=== PATIENT | female | born 1990 | race African-American/Black ===

== ENCOUNTER 2019-12-06 02:13 | Emergency (ER) | payer SELFPAY ==
[~2019-12-06] VITALS: Ht 162.6 cm; Wt 92.5 kg
[2019-12-06] MEDS ORDERED: SODIUM CHLORIDE 0.9% 1000ML 1,000 ML IV STA (02:23)
[2019-12-06] MEDS ORDERED: KETOROLAC TROMETHAMINE 30 MG/ML VIAL IV STA (02:23)
--- NOTE | 2019-12-06 02:25 | Emergency Department Note ---
History of Present Illnes History of Present Illness History of Present Illness This is a 29 year old female with pain this AM in "vaginal hole". Onset (how long ago): day(s) Radiation: Reports abdomen Severity: moderate Onset quality: gradual Duration (how long): day(s) Timing of current episode: constant Progression: worsening Chronicity: new Exacerbating factors: eating Associated symptoms: Reports denies other symptoms Treatments prior to arrival: none Past Medical/Family History Physician Review I have reviewed the patient's past medical and family history. Any updates have been documented here. Past Medical History Recent Fever: No Clinical Suspicion of Infectio: No New/Unexplained Change in Ment: No Other Medical History: endometriosis Past Surgical History: None Social History Smoking Cessation: Never Smoker Alcohol Use: None Any Illegal Drug Use: No Review of Systems Review of Systems Constitutional: Reports fever EENTM: Reports no symptoms Cardiovascular: Reports no symptoms Respiratory: Reports no symptoms Gastrointestinal: Reports abdominal pain, Reports nausea, Reports vomiting Genitourinary: Reports no symptoms Musculoskeletal: Reports no symptoms Integumentary: Reports no symptoms Neurological: Reports no symptoms Psychological: Reports no symptoms Endocrine: Reports no symptoms Hematological/Lymphatic: Reports no symptoms Physical Exam Related Data Allergies: Coded Allergies: No Known Allergies (Unverified , 12/06/19) Physical Exam CONSTITUTIONAL Constitutional: Present well-developed, Present well-nourished, Present obese HENT HENT: Present normocephalic, Present atraumatic, Present oropharynx clear/moist, Present nose normal HENT L/R: Present left ext ear normal, Present right ext ear normal EYES Eyes: Reports PERRL, Reports conjunctivae normal NECK Neck: Present ROM normal PULMONARY Pulmonary: Present effort normal, Present breath sounds normal CARDIOVASCULAR Cardiovascular: Present regular rhythm, Present heart sounds normal, Present capillary refill normal, Present normal rate GASTROINTESTINAL Abdominal: Present soft, Present bowel sounds normal, Present tender (s uprapubic) GENITOURINARY Genitourinary: Present exam deferred SKIN Skin: Present warm, Present dry MUSCULOSKELETAL Musculoskeletal: Present ROM normal NEUROLOGICAL Neurological: Present alert, Present oriented x 3, Present no gross motor or sensory deficits PSYCHOLOGICAL Psychological: Present mood/affect normal, Present judgement normal Results Laboratory Lab results reviewed: Yes Imaging Imaging results reviewed: Yes Impressions [place] [id number] Patient Name: DILSHAD PRETTY MR #: [id number] : 1990 Age/Sex: 29/F [facility] #: [id number] Req #: [id number] [facility] Physician: Ordered by: MARGA DAVIDSON DO Report #: [id number] Location: ER Room/Bed: Procedure: [id number] CT/CT ABDOMEN/PELVIS WO Exam Date: Exam Time: REPORT STATUS: Signed EXAM: CT Abdomen and Pelvis WITHOUT contrast INDICATION: ^L flank pain COMPARISON: None. TECHNIQUE: Abdomen and pelvis were scanned utilizing a multidetector helical scanner from the lung base to the pubic symphysis without administration of IV contrast. Absence of intravenous contrast decreases sensitivity for detection of focal lesions and vascular pathology. Coronal and sagittal reformations were obtained. Routine protocol was performed. IV CONTRAST: None ORAL CONTRAST: Water COMPLICATIONS: None RADIATION DOSE: Total DLP: 642.58 mGy*cm Estimated effective dose: (DLP x 0.015 x size factor) mSv CTDIvol has been reviewed. It is below the limits set by the Radiation Protocol Committee (RPC). FINDINGS: LINES and TUBES: None. LOWER THORAX: Unremarkable HEPATOBILIARY: Unenhanced liver is unremarkable. No biliary ductal dilation. GALLBLADDER: Collapsed, limiting evaluation. SPLEEN: No splenomegaly. PANCREAS: No focal masses or ductal dilatation. ADRENALS: No adrenal nodules KIDNEYS/URETERS: No hydronephrosis. Limited for evaluation of renal parenchyma without intravenous contrast. No stones. GI TRACT: No abnormal distention, wall thickening, or evidence of bowel obstruction. Appendix is normal. PELVIC ORGANS/BLADDER: Bladder is not distended. Several pelvic phleboliths. Vaginal tampon in place. 1.6 cm left ovarian cyst. LYMPH NODES: No lymphadenopathy. VESSELS: Unremarkable. PERITONEUM / RETROPERITONEUM: No free air or fluid. BONES: Unremarkable. SOFT TISSUES: Unremarkable. IMPRESSION: 1. No nephrolithiasis or evidence of obstructive urolithiasis. Signed by: Dr. Toby Huang MD on 12/06/2019 4:20 AM Dictated By: TOBY HUANG MD 9 Transcribed By: IRENA on 12/06/19419 COPY TO: MARGA DAVIDSON DO~ Assessment & Plan Medical Decision Making MDM Diff Dx : ectopic , uterine CA, fibroids, appendicitis, uti, kidney stone Reassessment Reassessment Patient with OD risk score of 500 plus. Patient witwh 80 pills of ultram in the month of november. Patient alluded to me that the only script that would work for her would be ultram. I explained that i would only prescribe pyridium and patient stated to nurse that if she could not receive ultram prescription for this visit that she might be back. I confronted patient told her that in a 48 hour period two separate prescribers gave her a total of 30 pills earlier this month. I asked her why she would require another prescription for ultram and asked directly if she was selling the pills. She replied that she was stockpiling her pills so to prevent future ER visits. Concern for overdose if prescription for ultram given this visit. Assessment & Plan Final Impression: (1) Urinary tract infection (2) Drug-seeking behavior Depart Disposition: HOME, SELF-CARE MARGA DAVIDSON DO Dec 06, 2019 02:25
[2019-12-06 03:05] LABS: BASOPHILS # (AUTO) 0.1 (0.0-0.1); BASOPHILS % 0.7 % (0.0-1.0); EOSINOPHILS # (AUTO) 0.1 (0.0-0.4); EOSINOPHILS % 0.6 % (0.0-6.0); HEMATOCRIT 29.9 % (34.2-44.1); HEMOGLOBIN 8.7 g/dL (12.0-16.0); LYMPHOCYTES # (AUTO) 2.8 (1.0-3.2); LYMPHOCYTES % 31.5 % (18.0-39.1); MEAN CORPUSCULAR HEMOGLOBIN 20.3 pg (28-32); MEAN CORPUSCULAR HGB CONC 29.1 g/dL (31-35); MEAN CORPUSCULAR VOLUME 69.9 fL (81-99); MONOCYTES # (AUTO) 0.4 (0.2-0.8); MONOCYTES % 4.6 % (4.4-11.3); NEUTROPHILS # (AUTO) 5.5 (2.1-6.9); NEUTROPHILS % 62.4 % (38.7-80.0); PLATELET COUNT 465 x10e3/uL (140-360); RED BLOOD COUNT 4.28 x10e6/uL (3.6-5.1); RED CELL DISTRIBUTION WIDTH 23.8 % (11.7-14.4)
[2019-12-06 03:09] LABS: CLARITY,URINE CLEAR (CLEAR); COLOR,URINE YELLOW (YELLOW); LEUKOCYTE ESTERASE ,URINE NEGATIVE (NEGATIVE); NITRITE,URINE NEGATIVE (NEGATIVE); PROTEIN,URINE DIPSTICK TRACE (NEGATIVE)
[2019-12-06 03:10] LABS: AMPHETAMINES SCREEN,URINE NEGATIVE (NEGATIVE); BENZODIAZEPINES SCREEN,URINE NEGATIVE (NEGATIVE); BILIRUBIN,URINE NEGATIVE (NEGATIVE); KETONES,URINE TRACE (NEGATIVE); PHENCYCLIDINE SCREEN,URINE NEGATIVE (NEGATIVE); PREGNANCY TEST, URINE NEGATIVE (NEGATIVE); URINE UROBILINOGEN 1 mg/dL (0.2 - 1)
[2019-12-06] MEDS ORDERED: ONDANSETRON HCL INJ 2MG/ML 2ML 2 MG/ML VIAL IV STA (03:11)
[2019-12-06 03:15] LABS: BACTERIA,URINE MODERATE /HPF; EPITHELIAL CELLS,URINE FEW /LPF
[2019-12-06 03:16] LABS: MUCUS,URINE MODERATE (RARE)
[2019-12-06] MEDS ORDERED: ONDANSETRON HCL INJ 2MG/ML 2ML 2 MG/ML VIAL ONE (03:19)
[2019-12-06 03:24] LABS: ALANINE AMINOTRANSFERASE 10 IU/L (0-55); ALBUMIN 4.2 g/dL (3.5-5.0); ALBUMIN/GLOBULIN RATIO 1.3 (0.8-2.0); ALKALINE PHOSPHATASE 73 IU/L (40-150); ANION GAP 13.1 mmol/L (8-16); BLOOD UREA NITROGEN 7 mg/dL (7-26); BUN/CREATININE RATIO 8 (6-25); CALCIUM 9.7 mg/dL (8.4-10.2); CARBON DIOXIDE 24 mmol/L (22-29); CHLORIDE 106 mmol/L (98-107); CREATININE, SERUM 0.89 mg/dL (0.57-1.11); EST GLOMERULAR FILTRATION RATE > 60 ML/MIN (60-); GLUCOSE 128 mg/dL (74-118); POTASSIUM 3.1 mmol/L (3.5-5.1); SODIUM 140 mmol/L (136-145)
[2019-12-06] MEDS ORDERED: MORPHINE SULFATE 2 MG/ML SYR 1ML ONE (03:57)
[2019-12-06] MEDS ORDERED: MORPHINE SULFATE INJ 4 MG/ML INJ 1ML IV PRN (04:00)
[2019-12-06] MEDS ORDERED: MORPHINE SULFATE 2 MG/ML SYR 1ML IV PRN (04:00)
--- NOTE | 2019-12-06 04:23 | Diagnostic Imaging Report ---
EXAM: CT Abdomen and Pelvis WITHOUT contrast INDICATION: ^L flank pain COMPARISON: None. TECHNIQUE: Abdomen and pelvis were scanned utilizing a multidetector helical scanner from the lung base to the pubic symphysis without administration of IV contrast. Absence of intravenous contrast decreases sensitivity for detection of focal lesions and vascular pathology. Coronal and sagittal reformations were obtained. Routine protocol was performed. IV CONTRAST: None ORAL CONTRAST: Water COMPLICATIONS: None RADIATION DOSE: Total DLP: 642.58 mGy*cm Estimated effective dose: (DLP x 0.015 x size factor) mSv CTDIvol has been reviewed. It is below the limits set by the Radiation Protocol Committee (RPC). FINDINGS: LINES and TUBES: None. LOWER THORAX: Unremarkable HEPATOBILIARY: Unenhanced liver is unremarkable. No biliary ductal dilation. GALLBLADDER: Collapsed, limiting evaluation. SPLEEN: No splenomegaly. PANCREAS: No focal masses or ductal dilatation. ADRENALS: No adrenal nodules KIDNEYS/URETERS: No hydronephrosis. Limited for evaluation of renal parenchyma without intravenous contrast. No stones. GI TRACT: No abnormal distention, wall thickening, or evidence of bowel obstruction. Appendix is normal. PELVIC ORGANS/BLADDER: Bladder is not distended. Several pelvic phleboliths. Vaginal tampon in place. 1.6 cm left ovarian cyst. LYMPH NODES: No lymphadenopathy. VESSELS: Unremarkable. PERITONEUM / RETROPERITONEUM: No free air or fluid. BONES: Unremarkable. SOFT TISSUES: Unremarkable. IMPRESSION: 1. No nephrolithiasis or evidence of obstructive urolithiasis. Signed by: Dr. Toby Huang MD on 12/06/2019 4:20 AM
--- NOTE | 2019-12-06 04:55 | NUR ---
PT REQUESTING RX FOR ULTRAM; ER MD NOTIFIED; THIS RN AND ER MD TO PTS BS; ER MD INFORMED PT THAT 5 RX'S FOR TRAMADOL HAD PREVIOUSLY BEEN FILLED BY THE PATIENT IN THE PAST 2 WEEKS; PT VERIFIED RX'S AND STATED, "WELL I STILL GOT SOME AT HOME, BUT I DON'T WANT TO COME BACK FOR MORE."
[2019-12-06 04:59] VITALS: BP 158/89
--- OUTSIDE RECORDS SUMMARY | 2019-12-07 16:32 | XMS REPORT | Clinical Summary ---
Author Author [facility] Address Unknown Phone Unavailable Care Team Providers Care Machine Packaging Technician Name Role Phone Marco Valentin MD PCP Allergies No Known Active Allergies Medications End Date Status Medication Sig Dispensed Refills Start Date Active ferrous sulfate 325 (65 Take 325 mg 0 FE) MG tablet by mouth 3 (three) times a day with meals. Active esomeprazole (NexIUM) 20 Take 20 mg by 0 MG capsule mouth daily before breakfast. 12/09/2019 Active traMADoL (ULTRAM) 50 mg Take 1 tablet 10 tablet 0 tabletIndications: acute (50 mg total) 0 pain by mouth every 8 (eight) hours as needed for moderate pain for up to 3 days .acute pain. 01/05/2020 Active sucralfate (CARAFATE) 1 Take 1 tablet 90 tablet 0 gram tablet (1 g total) 0 by mouth 3 (three) times a day for 30 days. 01/05/2020 Active ondansetron (ZOFRAN) 4 MG Take 1 tablet 20 tablet 0 tablet (4 mg total) 0 by mouth every 6 (six) hours as needed for nausea or vomiting for up to 30 days. Nausea and vomiting 03/23/2019 Discontinued (Discontinued b y another clinician) metFORMIN (GLUCOPHAGE) Take 500 mg 0 500 mg tablet by mouth 2 (two) times a day with meals. 03/23/2019 Discontinued (Discontinued b y another clinician) medroxyPROGESTERone 1 mL. 0 (DEPO-PROVERA) 150 mg/mL injection 03/23/2019 Discontinued (Discontinued b y another clinician) fluconazole (DIFLUCAN) TK 1 T PO QD 0 01 150 MG tabletIndications: 8 Yeast infection involving the vagina and surrounding area 09/29/2019 Discontinued sucralfate (CARAFATE) 1 Take 1 g by 0 gram tabletIndications: mouth 3 8 Gastroparesis, Chronic (three) times abdominal pain a day. 03/23/2019 Discontinued (Discontinued b y another clinician) traMADol (ULTRAM) 50 mg tramadol 50 0 tabletIndications: mg tablet Gastroparesis, Chronic TAKE 1 abdominal pain TABLET BY MOUTH 3 TIMES A DAY NEEDED 09/29/2019 Discontinued amLODIPine (NORVASC) 10 Take 1 tablet 90 tablet 3 mg tabletIndications: (10 mg total) 8 Essential hypertension by mouth daily. 03/02/2019 ondansetron (ZOFRAN) 4 MG Take 1 tablet 20 tablet 0 tablet (4 mg total) 9 by mouth every 8 (eight) hours as needed for nausea or vomiting for up to 30 days. 03/02/2019 famotidine (PEPCID) 20 MG Take 1 tablet 60 tablet 0 tablet (20 mg total) 9 by mouth 2 (two) times a day for 30 days. 04/24/2019 atorvastatin (LIPITOR) 40 Take 1 tablet 30 tablet 0 MG tablet (40 mg total) 0 by mouth nightly for 30 days. 04/24/2019 ondansetron ODT Take 1 tablet 30 tablet 0 03/25/19 2 (ZOFRAN-ODT) 4 MG (4 mg total) 0 disintegrating tablet by mouth every 8 (eight) hours as needed for nausea or vomiting for up to 30 days. 04/24/2019 metoclopramide (REGLAN) Take 1 tablet 120 tablet 0 10 MG tablet (10 mg total) 0 by mouth 4 (four) times a day for 30 days. 03/30/2019 traMADol (ULTRAM) 50 mg Take 1 tablet 20 tablet 0 tabletIndications: acute (50 mg total) 0 pain by mouth every 6 (six) hours as needed for moderate pain for up to 5 days .acute pain. 08/29/2019 ondansetron (ZOFRAN) 4 MG Take 1 tablet 30 tablet 0 tablet (4 mg total) 0 by mouth every 6 (six) hours as needed for nausea or vomiting for up to 30 days. 10/29/2019 sucralfate (Carafate) 100 Take 10 mL (1 900 mL 0 mg/mL suspension g total) by 0 mouth 3 (three) times a day for 30 days. 10/04/2019 traMADoL (ULTRAM) 50 mg Take 1 tablet 20 tablet 0 tabletIndications: acute (50 mg total) 0 pain by mouth every 6 (six) hours as needed for severe pain for up to 5 days .acute pain. 10/29/2019 amLODIPine (NORVASC) 10 Take 1 tablet 30 tablet 0 mg tablet (10 mg total) 0 by mouth daily for 30 days. 12/02/2019 Discontinued (Reorder) sucralfate (CARAFATE) 1 Take 1 g by 0 gram tablet mouth 3 (three) times a day. 12/02/2019 Discontinued (Reorder) ondansetron (ZOFRAN) 4 MG Take 4 mg by 0 tablet mouth every 6 (six) hours as needed for nausea or vomiting. Nausea and vomiting 12/06/2019 Discontinued (Reorder) traMADoL (ULTRAM) 50 mg Take 50 mg by 0 tabletIndications: acute mouth every 8 pain (eight) hours as needed for moderate pain .acute pain. 12/06/2019 Discontinued (Reorder) ondansetron (ZOFRAN) 4 MG Take 1 tablet 20 tablet 0 tablet (4 mg total) 0 by mouth every 6 (six) hours as needed for nausea or vomiting for up to 30 days. Nausea and vomiting 12/06/2019 Discontinued (Reorder) sucralfate (CARAFATE) 1 Take 1 tablet 90 tablet 0 gram tablet (1 g total) 0 by mouth 3 (three) times a day for 30 days. Active Problems Problem Noted Date Benign essential hypertension 11/28/2019 Anemia 11/27/2019 Abnormal uterine bleeding (AUB) 11/27/2019 Obesity 11/27/2019 PCOS (polycystic ovarian syndrome) 11/27/2019 Malingering 10/06/2019 Gastroparesis 04/29/2019 Hypokalemia 04/29/2019 Hypertension 04/29/2019 Intractable vomiting 03/23/2019 Resolved Problems Problem Noted Date Resolved Date Hypokalemia 11/27/2019 11/28/2019 Encounters Care Team Description Date Type Specialty Nidia Weiss DO TMJ syndrome (Primary Dx); Pelvic pain; Essential hypertension 12/06/2019 Emergency Emergency Medicine Donnie Garza MD Hypokalemia (Primary Dx); Chronic low back pain without sciatica, unspecified back pain laterality; Hypertension, unspecified type 12/02/2019 Emergency Emergency Medicine Leonor Zamora MD 11/28/2019 Documentation Obstetrics and Gyne cology Shine Troy MD Abouelseoud, Tanseem Hamad Mohamed A, MD Bavare, Arusha Amod, MD Iron deficiency anemia due to chronic bl ood loss 11/27/2019 Hospital General Surgery - Encounter 11/28/2019 Leonor Zamora MD Iron deficiency anemia due to chronic bl ood loss (Primary Dx) 11/27/2019 Orders Only Obstetrics and Gyne cology 11/03/2019 Travel Brian Gilbert MD Suspected Covid-19 Virus Infection (Prim annalisa Dx) 11/02/2019 Emergency Emergency Medicine - 11/03/2019 Harry Gomez MD Rizvi, Farhan, MD Bavare, Arusha Amod, MD COVID-19 virus infection (Primary Dx); HTN (hypertension), malignant; Tachypnea; Myalgia 10/06/2019 Emergency General Internal Wa dicine 10/06/2019 Travel Kenroy Kuhn MD Dysfunctional uterine bleeding (Primary Dx); Secondary hypertension 09/29/2019 Emergency Emergency Medicine Chris Argueta MD Vaginal bleeding (Primary Dx); Nausea; Tiredness; Hypokalemia 07/30/2019 Emergency Emergency Medicine 07/30/2019 Travel Gonzalo Rodríguez MD EGD WITH BIOPSY 04/30/2019 Surgery Gastroenterology , MD Jamila Andrews Young, MD 04/30/2019 Anesthesia Gastroenterology Event Kenroy Kuhn MD Bavare, Arusha Amod, MD Rizvi, Farhan, MD Gastroparesis (Primary Dx); Intractable nausea and vomiting; At risk for infectious disease due to recent foreign travel; Obesity, unspecified classification, unspecified obesity type, unspecified whether serious comorbidity present; Diarrhea, unspecified type; Abdominal pain, unspecified abdominal location; Secondary hypertension 04/29/2019 Hospital General Surgery - Encounter 04/30/2019 Nidia Weiss, DO Shine Troy MD Roberts, Janes Simms, DO Intractable vomiting with nausea, unspec ified vomiting type (Primary Dx) 03/23/2019 Emergency General Internal Me dicine - 03/25/2019 Benigno Oliva, Rectal bleeding (Primary Dx); Abdominal pain, unspecified abdominal location 01/31/2019 Emergency Emergency Medicine after 12/05/2018 Social History Date Tobacco Use Types Packs/Day Years Used Never Smoker Smokeless Tobacco: Never Used Drinks/Week oz/Week Comments Alcohol Use No Sex Assigned at Date Recorded Not on file Last Filed Vital Signs Reading Time Taken Comments Vital Sign 189/118 12/06/2019 11:00 PM CDT Blood Pressure 35 12/06/2019 11:00 PM CDT Pulse 37.3 C (99.2 F) 12/06/2019 10:18 PM CDT Temperature 18 12/06/2019 10:18 PM CDT Respiratory Rate 62% 12/06/2019 11:00 PM CDT Oxygen Saturation - - Inhaled Oxygen Concentration 90.7 kg (200 lb) 12/06/2019 9:26 PM CDT Weight 162.6 cm (5' 4") 12/06/2019 9:26 PM CDT Height 34.33 12/06/2019 9:26 PM CDT Body Mass Index Plan of Treatment Health Maintenance Due Date Last Done Comments CERVICAL CANCER SCREENING 2011 INFLUENZA VACCINE 10/11/2019 Procedures Comments Procedure Name Priority Date/Time Associated Diag nosis HCG QUALITATIVE, URINE Routine 12/06/2019 SCREEN 10:21 PM CDT URINALYSIS SCREEN AND Routine 12/06/2019 MICROSCOPY, WITH REFLEX 10:21 PM CDT TO CULTURE URINE CULTURE Routine 12/06/2019 10:15 PM CDT ESTIMATED GFR STAT 12/06/2019 9:45 PM CDT LACTIC ACID LEVEL, SEPSIS STAT 12/06/2019 - NOW AND REPEAT 2X EVERY 9:45 PM CDT 3 HOURS COMPREHENSIVE METABOLIC STAT 12/06/2019 PANEL 9:45 PM CDT CBC WITH PLATELET AND STAT 12/06/2019 DIFFERENTIAL 9:45 PM CDT XR CHEST 2 VW STAT 12/02/2019 7:56 AM CDT RESPIRATORY PATHOGEN Routine 12/02/2019 PANEL 7:42 AM CDT INFLUENZA ANTIGEN TEST, Routine 12/02/2019 REFLEX NEGATIVE TO RPP 7:42 AM CDT LACTIC ACID LEVEL, SEPSIS Timed 12/02/2019 - NOW AND REPEAT 2X EVERY 7:41 AM CDT 3 HOURS ESTIMATED GFR STAT 12/02/2019 7:41 AM CDT COMPREHENSIVE METABOLIC STAT 12/02/2019 PANEL 7:41 AM CDT HC COMPLETE BLD COUNT STAT 12/02/2019 W/AUTO DIFF 7:41 AM CDT URINE CULTURE STAT 12/02/2019 7:25 AM CDT HCG QUALITATIVE, URINE STAT 12/02/2019 SCREEN 7:23 AM CDT URINALYSIS SCREEN AND STAT 12/02/2019 MICROSCOPY, WITH REFLEX 7:23 AM CDT TO CULTURE URINE CULTURE STAT 11/28/2019 4:49 AM CDT URINALYSIS SCREEN AND STAT 11/28/2019 MICROSCOPY, WITH REFLEX 4:28 AM CDT TO CULTURE URINE DRUGS OF ABUSE STAT 11/28/2019 SCREEN 4:28 AM CDT COVID-19 QUALITATIVE PCR STAT 11/28/2019 4:28 AM CDT PREPARE RBC Routine 11/28/2019 2:29 AM CDT TYPE AND SCREEN Routine 11/28/2019 2:29 AM CDT HCG QUALITATIVE, SERUM Routine 11/28/2019 SCREEN 2:29 AM CDT US PELVIC TRANSVAGINAL STAT 11/28/2019 12:05 AM CDT US PELVIC TRANSABDOMINAL STAT 11/28/2019 12:05 AM CDT MANUAL DIFFERENTIAL STAT 11/27/2019 10:42 PM CDT ESTIMATED GFR STAT 11/27/2019 10:42 PM CDT THYROID STIMULATING STAT 11/27/2019 HORMONE 10:42 PM CDT T4, FREE STAT 11/27/2019 10:42 PM CDT PROTHROMBIN TIME WITH INR STAT 11/27/2019 10:42 PM CDT PARTIAL THROMBOPLASTIN STAT 11/27/2019 TIME (PTT) 10:42 PM CDT MAGNESIUM LEVEL STAT 11/27/2019 10:42 PM CDT HEMOGLOBIN A1C STAT 11/27/2019 10:42 PM CDT COMPREHENSIVE METABOLIC STAT 11/27/2019 PANEL 10:42 PM CDT CBC WITH PLATELET AND STAT 11/27/2019 DIFFERENTIAL 10:42 PM CDT RESPIRATORY PATHOGEN Routine 11/03/2019 PANEL 12:42 AM CDT INFLUENZA ANTIGEN TEST, Routine 11/03/2019 REFLEX NEGATIVE TO RPP 12:42 AM CDT COVID-19 QUALITATIVE PCR STAT 11/03/2019 12:41 AM CDT ESTIMATED GFR Routine 11/03/2019 12:29 AM CDT HCG QUALITATIVE, SERUM STAT 11/03/2019 SCREEN 12:29 AM CDT COMPREHENSIVE METABOLIC Routine 11/03/2019 PANEL 12:29 AM CDT HC COMPLETE BLD COUNT Routine 11/03/2019 W/AUTO DIFF 12:29 AM CDT PREPARE RBC Routine 10/06/2019 9:15 AM CDT TYPE AND SCREEN Routine 10/06/2019 9:15 AM CDT ESTIMATED GFR STAT 10/06/2019 2:24 AM CDT LIPASE LEVEL STAT 10/06/2019 2:24 AM CDT COMPREHENSIVE METABOLIC STAT 10/06/2019 PANEL 2:24 AM CDT HC COMPLETE BLD COUNT STAT 10/06/2019 W/AUTO DIFF 2:24 AM CDT URINALYSIS SCREEN AND STAT 10/06/2019 MICROSCOPY, WITH REFLEX 2:10 AM CDT TO CULTURE HCG QUALITATIVE, URINE Routine 10/06/2019 SCREEN 2:10 AM CDT INSERT PERIPHERAL IV Routine 10/06/2019 1:29 AM CDT XR CHEST 1 VW PORTABLE STAT 10/06/2019 1:21 AM CDT COVID-19 QUALITATIVE PCR STAT 10/06/2019 12:45 AM CDT RESPIRATORY PATHOGEN Routine 10/06/2019 PANEL 12:44 AM CDT INFLUENZA ANTIGEN TEST, Routine 10/06/2019 REFLEX NEGATIVE TO RPP 12:[address] ABDOMEN PELVIS W STAT 09/29/2019 CONTRAST 6:35 AM CDT ESTIMATED GFR STAT 09/29/2019 5:30 AM CDT HCG QUALITATIVE, SERUM STAT 09/29/2019 SCREEN 5:30 AM CDT COMPREHENSIVE METABOLIC STAT 09/29/2019 PANEL 5:30 AM CDT PARTIAL THROMBOPLASTIN STAT 09/29/2019 TIME (PTT) 5:30 AM CDT PROTHROMBIN TIME WITH INR STAT 09/29/2019 5:30 AM CDT TYPE AND SCREEN Routine 09/29/2019 5:30 AM CDT HC COMPLETE BLD COUNT STAT 09/29/2019 W/AUTO DIFF 5:30 AM CDT ESTIMATED GFR STAT 07/30/2019 1:16 AM CDT LIPASE LEVEL STAT 07/30/2019 1:16 AM CDT COMPREHENSIVE METABOLIC STAT 07/30/2019 PANEL 1:16 AM CDT HC COMPLETE BLD COUNT STAT 07/30/2019 W/AUTO DIFF 1:16 AM CDT URINE CULTURE STAT 07/30/2019 1:07 AM CDT HCG QUALITATIVE, URINE STAT 07/30/2019 SCREEN 12:46 AM CDT URINALYSIS SCREEN AND STAT 07/30/2019 MICROSCOPY, WITH REFLEX 12:46 AM CDT TO CULTURE SURGICAL PATHOLOGY Routine 04/30/2019 REQUEST 12:56 PM CLIENT ENGAGEMENT MANAGER EGD WITH BIOPSY 04/30/2019 Gastroparesis 11:28 AM CLIENT ENGAGEMENT MANAGER POTASSIUM LEVEL Routine 04/30/2019 9:24 AM CLIENT ENGAGEMENT MANAGER POC GLUCOSE Routine 04/30/2019 6:08 AM CLIENT ENGAGEMENT MANAGER HEMOGLOBIN A1C Routine 04/30/2019 4:51 AM CLIENT ENGAGEMENT MANAGER MANUAL DIFFERENTIAL Routine 04/30/2019 4:51 AM CLIENT ENGAGEMENT MANAGER ESTIMATED GFR Routine 04/30/2019 4:51 AM CLIENT ENGAGEMENT MANAGER BASIC METABOLIC PANEL Routine 04/30/2019 4:51 AM CLIENT ENGAGEMENT MANAGER CBC WITH PLATELET AND Routine 04/30/2019 DIFFERENTIAL 4:51 AM CLIENT ENGAGEMENT MANAGER POC GLUCOSE Routine 04/29/2019 8:15 PM CLIENT ENGAGEMENT MANAGER POC GLUCOSE Routine 04/29/2019 4:18 PM CLIENT ENGAGEMENT MANAGER CT ABDOMEN PELVIS W STAT 04/29/2019 CONTRAST 5:40 AM CLIENT ENGAGEMENT MANAGER BLOOD CULTURE, AEROBIC & Routine 04/29/2019 ANAEROBIC 4:40 AM CLIENT ENGAGEMENT MANAGER BLOOD CULTURE, AEROBIC & Routine 04/29/2019 ANAEROBIC 4:36 AM CLIENT ENGAGEMENT MANAGER RESPIRATORY PATHOGEN Routine 04/29/2019 PANEL 4:18 AM CLIENT ENGAGEMENT MANAGER INFLUENZA ANTIGEN TEST, Routine 04/29/2019 REFLEX NEGATIVE TO RPP 4:18 AM CLIENT ENGAGEMENT MANAGER MANUAL DIFFERENTIAL STAT 04/29/2019 3:49 AM CLIENT ENGAGEMENT MANAGER ESTIMATED GFR STAT 04/29/2019 3:49 AM CLIENT ENGAGEMENT MANAGER LIPASE LEVEL STAT 04/29/2019 3:49 AM CLIENT ENGAGEMENT MANAGER COMPREHENSIVE METABOLIC STAT 04/29/2019 PANEL 3:49 AM CLIENT ENGAGEMENT MANAGER CBC WITH PLATELET AND STAT 04/29/2019 DIFFERENTIAL 3:49 AM CLIENT ENGAGEMENT MANAGER MALARIA ANTIGEN WITH Routine 04/29/2019 SMEAR 3:49 AM CLIENT ENGAGEMENT MANAGER BLOOD PARASITE, THIN Routine 04/29/2019 SMEAR 2:49 AM CLIENT ENGAGEMENT MANAGER HCG QUALITATIVE, URINE STAT 04/29/2019 SCREEN 2:22 AM CLIENT ENGAGEMENT MANAGER URINALYSIS SCREEN AND STAT 04/29/2019 MICROSCOPY, WITH REFLEX 2:22 AM CLIENT ENGAGEMENT MANAGER TO CULTURE URINE CULTURE STAT 04/29/2019 2:22 AM CLIENT ENGAGEMENT MANAGER POC GLUCOSE Routine 03/25/2019 5:58 AM CLIENT ENGAGEMENT MANAGER POC GLUCOSE Routine 03/24/2019 8:32 PM CLIENT ENGAGEMENT MANAGER ESTIMATED GFR Timed 03/24/2019 8:07 PM CLIENT ENGAGEMENT MANAGER BASIC METABOLIC PANEL Timed 03/24/2019 8:07 PM CLIENT ENGAGEMENT MANAGER POC GLUCOSE Routine 03/24/2019 4:08 PM CLIENT ENGAGEMENT MANAGER ESTIMATED GFR Routine 03/24/2019 1:55 PM CLIENT ENGAGEMENT MANAGER BASIC METABOLIC PANEL Routine 03/24/2019 1:55 PM CLIENT ENGAGEMENT MANAGER MAGNESIUM LEVEL Routine 03/24/2019 11:46 AM CLIENT ENGAGEMENT MANAGER ESTIMATED GFR Routine 03/24/2019 11:46 AM CLIENT ENGAGEMENT MANAGER BASIC METABOLIC PANEL Routine 03/24/2019 11:46 AM CLIENT ENGAGEMENT MANAGER POC GLUCOSE Routine 03/24/2019 11:26 AM CLIENT ENGAGEMENT MANAGER POC GLUCOSE Routine 03/24/2019 6:38 AM CLIENT ENGAGEMENT MANAGER ESTIMATED GFR Routine 03/24/2019 5:11 AM CLIENT ENGAGEMENT MANAGER COMPREHENSIVE METABOLIC Routine 03/24/2019 PANEL 5:11 AM CLIENT ENGAGEMENT MANAGER CBC WITH PLATELET AND Routine 03/24/2019 DIFFERENTIAL 5:11 AM CLIENT ENGAGEMENT MANAGER POC GLUCOSE Routine 03/23/2019 12:29 PM CLIENT ENGAGEMENT MANAGER LIPID PANEL Routine 03/23/2019 11:39 AM CLIENT ENGAGEMENT MANAGER HEMOGLOBIN A1C Routine 03/23/2019 11:39 AM CLIENT ENGAGEMENT MANAGER CT ABDOMEN PELVIS W STAT 03/23/2019 CONTRAST 11:08 AM CLIENT ENGAGEMENT MANAGER HCG QUALITATIVE, URINE STAT 03/23/2019 SCREEN 10:07 AM CLIENT ENGAGEMENT MANAGER URINALYSIS SCREEN AND STAT 03/23/2019 MICROSCOPY, WITH REFLEX 10:07 AM CLIENT ENGAGEMENT MANAGER TO CULTURE ESTIMATED GFR STAT 03/23/2019 7:06 AM CLIENT ENGAGEMENT MANAGER COMPREHENSIVE METABOLIC STAT 03/23/2019 PANEL 7:06 AM CLIENT ENGAGEMENT MANAGER HC COMPLETE BLD COUNT STAT 03/23/2019 W/AUTO DIFF 7:06 AM CLIENT ENGAGEMENT MANAGER CT ABDOMEN PELVIS W STAT 01/31/2019 CONTRAST 6:46 AM CLIENT ENGAGEMENT MANAGER GRAM STAIN Routine 01/31/2019 6:04 AM CLIENT ENGAGEMENT MANAGER URINE CULTURE Routine 01/31/2019 6:04 AM CLIENT ENGAGEMENT MANAGER URINALYSIS SCREEN AND Routine 01/31/2019 MICROSCOPY, WITH REFLEX 5:48 AM CLIENT ENGAGEMENT MANAGER TO CULTURE HCG QUALITATIVE, URINE Routine 01/31/2019 SCREEN 5:48 AM CLIENT ENGAGEMENT MANAGER ESTIMATED GFR STAT 01/31/2019 5:04 AM CLIENT ENGAGEMENT MANAGER COMPREHENSIVE METABOLIC STAT 01/31/2019 PANEL 5:04 AM CLIENT ENGAGEMENT MANAGER HC COMPLETE BLD COUNT STAT 01/31/2019 W/AUTO DIFF 5:04 AM CLIENT ENGAGEMENT MANAGER after 12/05/2018 Results * Urinalysis screen and microscopy, with reflex to culture (12/06/2019 10:21 PM CDT) Only the most recent of 8 results within the time period is included. Specimen site Clean catch [facility] Color, UA Yellow [facility] Appearance, UA Clear [facility] Specific 1.018 1.001 - 1.035 [facility] gravity, [facility] pH, UA 6.0 5.0 - 8.5 [facility] Protein, UA Negative Negative [facility] Glucose, UA Negative Negative [facility] Ketones, UA Negative Negative [facility] Bilirubin, UA Negative Negative [facility] Blood, UA Small (A) Negative [facility] Nitrite, UA Negative Negative [facility] Urobilinogen, Negative <2.0 [facility] Leukocyte Negative Negative [facility] esterase, [facility] Epithelial Many /HPF [facility] cells, [facility] WBC, UA 4 0 - 5 /HPF [facility] RBC, UA 1 0 - 5 /HPF [facility] Bacteria, UA None seen None seen [facility] Yeast, UA None seen [facility] Yeast with None seen [facility] pseudohyphae[facility]A [facility] Specimen Urine Performing Organization Address City/[facility]/ZIP Code P gene Number [facility] [address] [place] [address] PATHOLOGY AND GENOMIC MEDICINE [address] * hCG qualitative, urine screen (12/06/2019 10:21 PM CDT) Only the most recent of 7 results within the time period is included. Pathologist [facility] hCG Negative Negative [facility] qualitative, Comment: [facility] urine The manufacturers stated [facility]IANT sensitivity of HcG test for HOSPITAL serum is >/= 10 mIU/ml and urine is >/= 20mIU/ml. Specimen Urine Performing Organization Address [facility] P gene Number [facility] [address] [place] [address] PATHOLOGY AND GENOMIC MEDICINE [address] * Urine culture (12/06/2019 10:15 PM CDT) Only the most recent of 6 results within the time period is included. Pathologist [facility] Urine culture SEE COMMENTComment: [facility] Bacteriuria screen negative. [facility] Specimen Performing Organization Address [facility] [place] [address] PATHOLOGY [place] [address] HOSPITAL * Estimated GFR (12/06/2019 9:45 PM CDT) Only the most recent of 15 results within the time period is included. Pathologist [facility] Estimated GFR >=90 mL/min/1.73 m2 [facility] Comment: [facility] Catergory Units [facility] Interpretation HOSPITAL G1 >=90 Normal or high G2 60-89 Mildly decreased G3a 45-59 Mildly to moderately decreased G3b 30-44 Moderately to severely decreased G4 15-29 Severely decreased G5 <15 Kidney failure The eGFR was calculated using the Chronic Kidney Disease Epidemiology Collaboration (CKD-EPI) equation. Interpretation is based on recommendations of the National Kidney Foundation-Kidney Disease Outcomes Quality Initiative (NKF-KDOQI) published in 2014. Specimen Performing Organization Address City/[facility]/ZIP Code P gene Number [facility] [place] [place] DEPARTMENT OF [address] [id number] PATHOLOGY AND GENOMIC MEDICINE [facility] [address] [place] [address] * Lactic acid level, SEPSIS - Now and repeat 2x every 3 hours (12/06/2019 9:45 PM CDT) Only the most recent of 2 results within the time period is included. [facility] Lactic acid 2.0 0.5 - 2.2 mmol/L [facility] Specimen Blood Performing Organization Address City/State/ZIP [facility] P gene Number [facility] [address] [place] [address] PATHOLOGY AND GENOMIC MEDICINE [address] * CBC with platelet and differential (12/06/2019 9:45 PM CDT) Only the most recent of 12 results within the time period is included. Pathologist [facility] WBC 8.8 4.2 - 11.0 k/uL [facility] RBC 4.31 4.04 - 5.86 m/uL [facility] HGB 8.9 (L) 11.5 - 15.3 g/dL [facility] HCT 29.9 (L) 34.0 - 45.0 % [facility] MCV 69.4 (L) 80.0 - 98.0 fL [facility] MCH 20.6 (L) 27.0 - 34.0 pg [facility] MCHC 29.8 (L) 31.5 - 36.5 g/dL [facility] RDW - SD 56.7 (H) 37.0 - 51.0 fL [facility] MPV 9.7 7.4 - 10.4 fL [facility] Platelet count 502 (H) 150 - 400 k/uL [facility] Nucleated RBC 0.00 /100 WBC [facility] Neutrophils 73.0 (H) 36.0 - 66.0 % [facility] Lymphocytes 21.5 (L) 24.0 - 44.0 % [facility] Monocytes 4.1 0.0 - 6.0 % [facility] Eosinophils 0.5 0.0 - 6.0 % [facility] Basophils 0.7 0.0 - 1.2 % [facility] Immature 0.2 0.0 - 1.0 % [facility] granulocytes [facility] Specimen Blood Performing Organization Address City/State/ZIP Code P gene Number [facility] [place] [place] DEPARTMENT OF [address] [place] [address] PATHOLOGY AND GENOMIC MEDICINE [facility] [address] * Comprehensive metabolic panel (12/06/2019 9:45 PM CDT) Only the most recent of 11 results within the time period is included. Sodium 140 135 - 150 mEq/L [facility] Potassium 3.2 (L) 3.5 - 5.0 mEq/L [facility] Chloride 105 98 - 112 mEq/L [facility] CO2 22 (L) 24 - 31 mmol/L [facility] Anion gap 13@ANIO 7 - 15 mEq/L [facility] BUN 6 (L) 7 - 18 mg/dL [facility] Creatinine 0.80 0.50 - 0.90 mg/dL [facility] Glucose 92 65 - 100 mg/dL [facility] Calcium 9.6 8.3 - 10.2 mg/dL [facility] Protein 7.9 6.3 - 8.3 g/dL [facility] Albumin 4.1 3.5 - 5.0 g/dL [facility] A/G ratio 1.1 0.7 - 3.8 [facility] Alkaline 79 0 - 104 U/L [facility] phosphatase [facility] AST 18 10 - 35 U/L [facility] ALT 8 5 - 50 U/L [facility] Total bilirubin 0.4 0.2 - 1.2 mg/dL [facility] Specimen Blood Performing Organization Address City/State/ZIP Code P gene Number [facility] [place] [place] DEPARTMENT OF [address] [place] [address] PATHOLOGY AND GENOMIC MEDICINE [facility] [address] [place] [address] HOSPITAL * XR Chest 2 Vw (12/02/2019 7:56 AM CDT) Specimen Narrative Performed At EXAMINATION: XR CHEST 2 VW HM [facility] CLINICAL HISTORY: 29 years Female fev er COMPARISON: 10/06/2019 IMPRESSION: 1.The cardiomediastinal silhouette is n ormal. 2.Lung volumes are decreased. There is no evidence pulmonary edema. There are no focal consolidations or effusions. 3.Regional skeletal structures are with in normal limits. [id number] Procedure Note Hm Interface, Radiology Results Incoming - 12/02/2019 8:00 AM CDT EXAMINATION: XR CHEST 2 VW CLINICAL HISTORY: 29 years Female fever COMPARISON: 10/06/2019 IMPRESSION: 1.The cardiomediastinal silhouette is no rmal. 2.Lung volumes are decreased. There is n o evidence pulmonary edema. There are no focal consolidations or effusions. 3.Regional skeletal structures are withi n normal limits. [facility]-[id number] Performing Organization Address City/State/ZIP Code P gene Number [facility] [id number] [place] [address] * Respiratory pathogen panel (12/02/2019 7:42 AM CDT) Only the most recent of 4 results within the time period is included. Adenovirus PCR Not Detected BETHEL Comment: [facility]-DAY Specimen Information HOSPITAL Specimen Source: Nares Specimen Site: Right Coronavirus Not Detected BETHEL HKU1 PCR [facility] Coronavirus Not Detected BETHEL NL63 PCR [facility] Coronavirus Not Detected BETHEL 229E PCR [facility] Coronavirus Not Detected BETHEL OC43 PCR [facility] Human Not Detected [facility]HEL [facility]neumovirus [facility] Not Detected BETHEL rhinovirus/ente [facility] rovirus PCR [facility] Influenza A PCR Not Detected [facility] Influenza A/H1 Not Reported BETHEL PCR [facility] Influenza A/H3 Not Reported BETHEL PCR [facility] Influenza Not Reported BETHEL A/H1-2009 PCR [facility] Influenza B PCR Not Detected [facility] Parainfluenza Not Detected BETHEL virus 1 PCR [facility] Parainfluenza Not Detected BETHEL virus 2 PCR [facility] Parainfluenza Not Detected BETHEL virus 3 PCR [facility] Parainfluenza Not Detected BETHEL virus 4 PCR [facility] Respiratory Not Detected BETHEL syncytial virus [facility] PCR HOSPITAL Bordetella Not Detected BETHEL pertussis PCR [facility] Bordetella Not Detected BETHEL parapertussis [facility] PCR [facility]OSPITAL Chlamydia Not Detected BETHEL pneumoniae PCR [facility] Mycoplasma Not Detected BETHEL pneumoniae PCR [facility] Influenza A no Not Reported BETHEL sub type PCR [facility] Specimen Nares - Right Performing Organization Address City/[facility] P gene Number [facility] DEPARTMENT OF [address] [place] [address] PATHOLOGY AND GENOMIC MEDICINE [address] * Influenza antigen test, reflex negative to RPP (12/02/2019 7:42 AM CDT) Only the most recent of 4 results within the time period is included. Pathologist [facility] Influenza Negative for Influenza A/B BETHEL antigen antigen. LATTER-DAY Comment: [facility] Specimen Information HOSPITAL Specimen Source: Nares Specimen Site: Right Specimen Nares - Right Performing Organization Address [facility] P gene Number [facility] [place] [place] DEPARTMENT [facility] [place] [address] PATHOLOGY AND GENOMIC MEDICINE [address] * Transfuse RBC (11/28/2019 9:22 AM CDT) * COVID-19 qualitative PCR (11/28/2019 4:28 AM CDT) Only the most recent of 3 results within the time period is included. Pathologist [facility] Interpretation Negative results do not DE preclude 2019-nCoV infection [facility] and should not be used as the HOSPITAL sole basis for treatment or other patient management decisions. Negative results must be combined with clinical observations, patient history, and epidemiological information. COVID-19 Not-Detected Not-Detected BETHEL qualitative PCR [facility] HOSPITAL COVID-19 See link below for PDF Lab BETHEL qualitative PCR ReportComment: Case Number: [facility] [id number] HOSPITAL Specimen Nasopharyngeal swab Performing Organization Address [facility] P gene Number [facility] [place] [address] PATHOLOGY AND GENOMIC MEDICINE [place] [id number] [facility] * Urine drugs of abuse screen (11/28/2019 4:28 AM CDT) Amphetamine Negative BETHEL screen, urine [facility] Barbiturate Negative BETHEL screen, urine [facility] Benzodiazepine Negative BETHEL screen, urine [facility] Cocaine screen, Negative BETHEL urine [facility] Methadone Negative BETHEL metabolite [facility]TER[facility]DAY (EDDP), urine [facility] Opiates screen, Positive (A) BETHEL urine [facility] Oxycodone Negative BETHEL screen, urine [facility] Phencyclidine Negative BETHEL screen, urine [facility] Cannabinoid Negative BETHEL screen, urine Comment: [facility] Drug screen minimum [facility] Amphetamines 1000 ng/mL Barbiturates 200 ng/mL Benzodiazepines 300 ng/mL Cocaine 300 ng/mL Methadone 300 ng/mL Opiates 300 ng/mL Oxycodone 300 ng/mL Phencyclidine 25 ng/mL Cannabinoids 50 ng/mL Tricyclics 1000 ng/mL Results are from screening tests and should only be used for medical evaluation. Drug testing for legal purposes requires definitive (or confirmatory) testing methods, which are available upon request. Contact the laboratory if definitive testing is required. Specimen Urine Performing Organization Address City/State/ZIP Code P gene Number [facility] [place] DEPARTMENT OF [facility] [place] [address] PATHOLOGY [place] [address] HOSPITAL * Prepare RBC, 2 Units (11/28/2019 2:29 AM CDT) Product name Red Blood Cells -1, Leukored [facility] Unit number [id number] [facility] Product code [id number] [facility] Dispense status Transfused [facility] Blood [id number] BETHEL expiration date [facility] Blood type code 0600 [facility] Blood type A NEGATIVE [facility] Compatibility Compatible [facility] Product name Red Blood Cells -1, Leukored [place] [facility] Unit number [id number] [facility] Product code [id number] [facility] Dispense status Transfused [facility] Blood [id number] BETHEL expiration date [facility] Blood type code 0600 [facility] Blood type A NEGATIVE [facility] Compatibility Compatible [facility] Specimen Blood Performing Organization Address City/[facility] P gene Number [facility] [place] [place] [address] PATHOLOGY [place] [address] HOSPITAL * Type and screen (11/28/2019 2:29 AM CDT) Only the most recent of 3 results within the time period is included. ABO grouping A [facility] Rh type NEG [facility] Antibody screen NEG BETHEL (gel) [facility] Specimen Blood Performing Organization Address [facility] [place] [address] PATHOLOGY AND GENOMIC MEDICINE [address] * hCG qualitative, serum screen (11/28/2019 2:29 AM CDT) Only the most recent of 3 results within the time period is included. hCG Negative BETHEL qualitative, Comment: LATTER-DAY serum The manufacturers stated [facility] sensitivity of HcG test for HOSPITAL serum is >/= 10 mIU/ml and urine is >/= 20mIU/ml. Specimen Blood Performing Organization Address City/[facility] [place] [address] PATHOLOGY AND GENOMIC MEDICINE [address] * US Pelvic Transabdominal (11/28/2019 12:05 AM CDT) Specimen Narrative Performed At EXAM: US PELVIC TRANSABDOMINAL, US PELVIC TRANSVAGI NAL HM [facility] CLINICAL HISTORY: abnormal uterine bl eeding anemia TECHNIQUE:Transabdominal and endovagina l sonographic images of the pelvis were obtained. Grayscale, color Doppler, and spectral waveform analysis of the ovarian vessels was performed. COMPARISON: None. FINDINGS: The uterus measures 8.1 x 4.6 x 4.8 cm. The endometrial stripe measures 0.9 cm. Of note, there is complex, heterogenous echogenic material within the endometrial canal which may reflect blo od products; correlate findings with menstrual status. No uterine masses. Cervix is normal. The right ovary measures 4.4 x 2.4 x 3. 1 cm. Normal Doppler flow was present. The left ovary measures 3.6 x 1.8 x 1.9 cm. Normal Doppler flow was present. No adnexal masses. There is no visualized free fluid in th e pelvic cul-de-sac. IMPRESSION: 1.Mild amount of complex, heterogenous echogenic material within the endometrial canal which may reflect blood products; correlate findings with menstrual status. 2.Ovaries are unremarkable in appearanc e. [id number] Procedure Note Interface, Radiology Results - 11/28/2019 12:47 AM CDT EXAM: US PELVIC TRANSABDOMINAL, US PELVIC TRANSVAGINAL CLINICAL HISTORY: abnormal uterine bleeding anemia TECHNIQUE:Transabdominal and endovaginal sonographic images of the pelvis were obtained. Grayscale, color Doppler, and spectral waveform analysis of the ovarian vessels was performed. COMPARISON: None. FINDINGS: The uterus measures 8.1 x 4.6 x 4.8 cm. The endometrial stripe measures 0.9 cm. Of note, there is complex, heterogenous echogenic material within the endometrial canal which may reflect blood products; correlate findings with menstrual status. No uterine masses. Cervix is normal. The right ovary measures 4.4 x 2.4 x 3.1 cm. Normal Doppler flow was present. The left ovary measures 3.6 x 1.8 x 1.9 cm. Normal Doppler flow was present. No adnexal masses. There is no visualized free fluid in the pelvic cul-de-sac. IMPRESSION: 1.Mild amount of complex, heterogenous e chogenic material within the endometrial canal which may reflect blood products; correlate findings with menstrual status. 2.Ovaries are unremarkable in appearance . [id number] Performing Organization Address City/State/ZIP Code P gene Number [facility] [address] [place] [address] * US Pelvic Transvaginal (11/28/2019 12:05 AM CDT) Specimen Narrative Performed At EXAM: US PELVIC TRANSABDOMINAL, US PELVIC TRANSVAGI [facility] CLINICAL HISTORY: abnormal uterine bl eeding anemia TECHNIQUE:Transabdominal and endovagina l sonographic images of the pelvis were obtained. Grayscale, color Doppler, and spectral waveform analysis of the ovarian vessels was performed. COMPARISON: None. FINDINGS: The uterus measures 8.1 x 4.6 x 4.8 cm. The endometrial stripe measures 0.9 cm. Of note, there is complex, heterogenous echogenic material within the endometrial canal which may reflect blo od products; correlate findings with menstrual status. No uterine masses. Cervix is normal. The right ovary measures 4.4 x 2.4 x 3. 1 cm. Normal Doppler flow was present. The left ovary measures 3.6 x 1.8 x 1.9 cm. Normal Doppler flow was present. No adnexal masses. There is no visualized free fluid in th e pelvic cul-de-sac. IMPRESSION: 1.Mild amount of complex, heterogenous echogenic material within the endometrial canal which may reflect blood products; correlate findings with menstrual status. 2.Ovaries are unremarkable in appearanc e. [id number] Procedure Note Interface, Radiology Results Incoming - 11/28/2019 12:47 AM CDT EXAM: US PELVIC TRANSABDOMINAL, US PELVIC TRANSVAGINAL CLINICAL HISTORY: abnormal uterine bleeding anemia TECHNIQUE:Transabdominal and endovaginal sonographic images of the pelvis were obtained. Grayscale, color Doppler, and spectral waveform analysis of the ovarian vessels was performed. COMPARISON: None. FINDINGS: The uterus measures 8.1 x 4.6 x 4.8 cm. The endometrial stripe measures 0.9 cm. Of note, there is complex, heterogenous echogenic material within the endometrial canal which may reflect blood products; correlate findings with menstrual status. No uterine masses. Cervix is normal. The right ovary measures 4.4 x 2.4 x 3.1 cm. Normal Doppler flow was present. The left ovary measures 3.6 x 1.8 x 1.9 cm. Normal Doppler flow was present. No adnexal masses. There is no visualized free fluid in the pelvic cul-de-sac. IMPRESSION: 1.Mild amount of complex, heterogenous e chogenic material within the endometrial canal which may reflect blood products; correlate findings with menstrual status. 2.Ovaries are unremarkable in appearance . [id number] Performing Organization Address City/State/ZIP Code P gene Number LILIAN COLVIN [address] [place] [address] * Manual differential (11/27/2019 10:42 PM CDT) Only the most recent of 3 results within the time period is included. Manual PERFORMED BETHEL differential [facility] Neutrophils 50.0 36.0 - 66.0 % [facility] Lymphocytes 45.0 (H) 24.0 - 44.0 % [facility] Monocytes 3.0 0.0 - 6.0 % [facility] Eosinophils 2.0 0.0 - 6.0 % [facility] Basophils 0.0 0.0 - 1.2 % [facility] Metamyelocytes 0 0 - 1 % [facility] Promyelocytes 0 0 - 1 % [facility] Platelet slide [place] adequate BETHEL review [facility] Anisocytosis Moderate [facility] Polychromasia FEW [facility] Schistocytes Occasional [facility] Enlarged FEW BETHEL platelets [facility] Smudge cells FEW [facility] Specimen Performing Organization Address City/[facility] P gene Number [facility] [place] [place] DEPARTMENT OF [address] [place] [address] PATHOLOGY [place] [address] HOSPITAL * Partial thromboplastin time, activated (11/27/2019 10:42 PM CDT) Only the most recent of 2 results within the time period is included. PTT 24.7 23.0 - 36.0 sec BETHEL Comment: [facility]TER-DAY PTT therapeutic range for [facility] unfractionated heparin is HOSPITAL 61.0-112.0 seconds which corresponds to Anti-Xa 0.3-0.7 U/ml. Specimen Blood Performing Organization Address City/[facility]/ZIP Code P gene Number [facility] [place] [place] DEPARTMENT OF [address] [place], [place] [id number] PATHOLOGY AND GENOMIC MEDICINE [address] * Prothrombin time with INR (11/27/2019 10:42 PM CDT) Only the most recent of 2 results within the time period is included. Prothrombin 14.3 11.5 - 14.5 sec [facility] INR 1.11 BETHEL Comment: [facility]DAY [facility] reference ranges [facility] below: Indication: INR Value Treatment of Venous Thrombosis, 2.0-3.0 pulmonary emboli, or prophylaxis of a venous thrombosis, or systemic emboli. High dose, high risk patients 3.0-4.5 with mechanical valves. NOTE: INR values over 3.0 are sometimes associated with gastrointestinal hemorrhage, especially values over 4.0. Specimen Blood Performing Organization Address City/[facility]/ZIP [facility] P gene Number [address] * Thyroid stimulating hormone (11/27/2019 10:42 PM CDT) TSH 0.76 0.27 - 4.20 uIU/mL [facility] Specimen Blood Performing Organization Address City/State/ZIP [facility] [place] [address] PATHOLOGY [address] * T4, free (11/27/2019 10:42 PM CDT) T4, free 1.09 0.90 - 1.70 ng/dL [facility] Specimen Blood Performing Organization Address City/[facility]/ZIP [facility] [place] [address] PATHOLOGY AND GENOMIC MEDICINE [address] * Magnesium level (11/27/2019 10:42 PM CDT) Only the most recent of 2 results within the time period is included. Magnesium 1.90 1.60 - 2.60 mg/dL [facility] Specimen Blood Performing Organization Address City/[facility]/ZIP [facility] [place] [address] PATHOLOGY AND GENOMIC MEDICINE [address] * Hemoglobin A1c (11/27/2019 10:42 PM CDT) Only the most recent of 3 results within the time period is included. Hemoglobin A1C 5.7 (H) 4.0 - 5.6 % BETHEL Comment: [facility]-DAY HbA1c cutoffs for diagnosing [facility] diabetes: HOSPITAL 4.0% - 5.6% = normal 5.7% - 6.4% = increased risk for diabetes (prediabetes)9 >=6.5% = diabetes9 Goals for glycemic control (ADA 2016) < 7.0% Target for non adults with diabetes. More or less stringent targets may be appropriate for individual patients. <7.5% Target for Children and adolescents with type 1 diabetes. Specimen Blood Performing Organization Address City/[facility] [place] [address] PATHOLOGY AND [facility] MEDICINE [address] * Lipase level (10/06/2019 2:24 AM CDT) Only the most recent of 3 results within the time period is included. Lipase 22 13 - 60 U/L [facility] Specimen Blood Performing Organization Address City/[facility] [place] [address] PATHOLOGY AND GENOMIC MEDICINE [address] * Insert peripheral IV (10/06/2019 1:29 AM CDT) Narrative Performed At Matthias Galvez NP 0 4:35 AM Insert peripheral IV Date/Time: 10/06/2019 2:54 AM Performed by: Matthias Galvez NP Authorized by: Harry Gomez MD Consent: Verbal consent obtained. Risks and benefits: risks, benefits and alternatives were discussed Consent given by: patient Required items: required blood products , implants, devices, and special equipment available Patient identity confirmed: verbally wi th patient and arm band Local anesthesia used: no Anesthesia: Local anesthesia used: no Sedation: Patient sedated: no Comments: 20-gauge IV access obtained t o the left upper arm utilizing ultrasound guidance. Patient tolerate d procedure well. IV with good blood return. Flushes easily. Labs drawn at bedside and given to RN. * XR Chest 1 Vw Portable (10/06/2019 1:21 AM CDT) Specimen Narrative Performed At EXAMINATION: XR CHEST 1 VW PORTABLE [facility] CLINICAL HISTORY: SOB COMPARISON: 02/24/2015. IMPRESSION: Low lung volumes. Mild bibasilar volume loss or infiltrates. Imaging features can be seen with COVID-19 pneumonia, th ough are nonspecific and can occur with a variety of infectious and noninfectious processes. Consider isolation and appropriate laboratory testing. No pleural effusion or pneumothorax. The cardiomediastinal silhouette is nor mal. No acute osseous abnormalities. [facility]-[id number] Procedure Note Hm Interface, Radiology Results Incoming - 10/06/2019 1:25 AM CDT EXAMINATION: XR CHEST 1 VW PORTABLE CLINICAL HISTORY: SOB COMPARISON: 02/24/2015. IMPRESSION: Low lung volumes. Mild bibasilar volume loss or infiltrates. Imaging features can be seen with COVID-19 pneumonia, though are nonspecific and can occur with a variety of infectious and noninfectious processes. Consider isolation and appropriate laboratory testing. No pleural effusion or pneumothorax. The cardiomediastinal silhouette is normal. No acute osseous abnormalities. [facility]-[id number] Performing Organization Address City/State/ZIP Code P gene Number [facility] [address] [place] [address] * CT Abdomen Pelvis W Contrast (09/29/2019 6:35 AM CDT) Only the most recent of 4 results within the time period is included. Specimen Narrative Performed At EXAMINATION: CT ABDOMEN PELVIS W CONTRAST RAD[facility] NT CLINICAL HISTORY: suprapubic pain and dysfunctional uterine bleeding TECHNIQUE: Multiple axial images of the abdomen and pelvis were obtained following intravenous administration of iodinated contrast. CT imaging was performed with iterative reconstruction technique and/or automated exposure control to reduce radiation dose. COMPARISON: April 29, 2019 FINDINGS: LUNG BASES: Normal ABDOMEN: Liver: The liver is normal. No focal ma ss. Gallbladder: The gallbladder is normal. Spleen: The spleen is not enlarged. Pancreas: The pancreas is unremarkable. Adrenal Glands: The adrenal glands are unremarkable. Kidneys: The kidneys are unremarkable. No mass, hydronephrosis or calculi. Vascular: The abdominal aorta is nonane urysmal. Nodes: No enlarged retroperitoneal or m esenteric lymphadenopathy. Bowel: No bowel obstruction or acute in flammatory changes. The appendix is normal. Ascites/fluid collections: No pneumoper itoneum, ascites, or organized fluid collections. PELVIS: Redemonstration of bilateral adnexal cy sts, including a fat-containing dermoid cyst on the left. MUSCULOSKELETAL: Subtle lumbar levocurvature, possibly p ositional. IMPRESSION: 1.No acute abdominopelvic inflammatory process. 2.Bilateral benign adnexal cysts, inclu ding a fat-containing dermoid cyst on the left. [facility]-[id number] Procedure Note Interface, Radiology Results Incoming - 09/29/2019 6:49 AM CDT EXAMINATION: CT ABDOMEN PELVIS W CONTRAST CLINICAL HISTORY: suprapubic pain and dysfunctional uterine bleeding TECHNIQUE: Multiple axial images of the abdomen and pelvis were obtained following intravenous administration of iodinated contrast. CT imaging was performed with iterative reconstruction technique and/or automated exposure control to reduce radiation dose. COMPARISON: April 29, 2019 FINDINGS: LUNG BASES: Normal ABDOMEN: Liver: The liver is normal. No focal mass. Gallbladder: The gallbladder is normal. Spleen: The spleen is not enlarged. Pancreas: The pancreas is unremarkable. Adrenal Glands: The adrenal glands are unremarkable. Kidneys: The kidneys are unremarkable. No mass, hydronephrosis or calculi. Vascular: The abdominal aorta is nonaneurysmal. Nodes: No enlarged retroperitoneal or mesenteric lymphadenopathy. Bowel: No bowel obstruction or acute inflammatory changes. The appendix is normal. Ascites/fluid collections: No pneumoperitoneum, ascites, or organized fluid collections. PELVIS: Redemonstration of bilateral adnexal cysts, including a fat-containing dermoid cyst on the left. MUSCULOSKELETAL: Subtle lumbar levocurvature, possibly positional. IMPRESSION: 1.No acute abdominopelvic inflammatory p rocess. 2.Bilateral benign adnexal cysts, includ ing a fat-containing dermoid cyst on the left. [facility]-[id number] Performing Organization Address City/State/ZIP Code P gene Number MARII [address] [place] [address] * Surgical pathology request (04/30/2019 12:56 PM CLIENT ENGAGEMENT MANAGER) [facility] [place] [place] DEPARTMENT OF PATHOLOGY AND GENOMIC MEDICINE Surgical See link below for PDF Lab [facility] [place] DEPAR TMENT pathology Report OF PATHOLOGY report AND GENOMIC MEDICINE Result status This is Final Report for [facility] [place] [place] DEPARTM ENT [id number] OF PATHOLOGY AND GENOMIC MEDICINE Specimen Performing Organization Address City/[facility]/ZIP [facility] P gene Number [facility] [place] [place] DEPARTMENT OF [address] [place] [address] PATHOLOGY AND GENOMIC MEDICINE * Potassium level (04/30/2019 9:24 AM CLIENT ENGAGEMENT MANAGER) [facility] Potassium 3.7 3.5 - 5.0 mEq/L [facility] Specimen Plasma specimen Performing Organization Address [facility] [place] [address] PATHOLOGY AND GENOMIC MEDICINE [address] * POC glucose (04/30/2019 6:08 AM CLIENT ENGAGEMENT MANAGER) Only the most recent of 9 results within the time period is included. [facility] POC glucose 178 (H) 65 - 100 mg/dL BETHEL Comment: LATTER-DAY Metal Organ Pipe Maker Name: Marlene Carey RADIANT Device ID: [id number] HOSPITAL Specimen Performing Organization Address [facility] [place] [address] PATHOLOGY AND GENOMIC MEDICINE [address] * Basic metabolic panel (04/30/2019 4:51 AM CLIENT ENGAGEMENT MANAGER) Only the most recent of 4 results within the time period is included. [facility] Sodium 132 (L) 135 - 150 mEq/L [facility] Potassium 5.3 (H) 3.5 - 5.0 mEq/L [facility] Chloride 99 98 - 112 mEq/L [facility] CO2 24 24 - 31 mmol/L [facility] Anion gap 9@ANIO 7 - 15 mEq/L [facility] BUN 4 (L) 7 - 18 mg/dL [facility] Creatinine 0.60 0.50 - 0.90 mg/dL [facility] Glucose 113 (H) 65 - 100 mg/dL [facility] Calcium 7.7 (L) 8.3 - 10.2 mg/dL [facility] Specimen Plasma specimen Performing Organization Address City/[facility] [place] [address] PATHOLOGY AND GENOMIC MEDICINE [address] * Blood culture, aerobic & anaerobic (04/29/2019 4:40 AM CLIENT ENGAGEMENT MANAGER) Only the most recent of 2 results within the time period is included. Pathologist [facility] Blood culture No growth after 5 days of BETHEL isolate incubation. [facility]DAY Comment: HOSPITAL Specimen Information Specimen Source: Blood Specimen Site: Peripheral Hand Right Specimen Blood Performing Organization Address City/[facility] [place] [address] PATHOLOGY [address] * Malaria antigen with smear (04/29/2019 3:49 AM CLIENT ENGAGEMENT MANAGER) [facility] Plasmodium Negative for Plasmodium BETHEL falciparum falciparum antigen. [facility]TER[facility]DAY antigen Comment: HOSPITAL Specimen Information Specimen Source: Blood Specimen Site: Peripheral Plasmodium Negative for Plasmodium BETHEL species antigen species antigen. [facility] Blood parasite, No Plasmodium or other blood BETHEL thick smear parasite seen. [facility] Specimen Blood - Peripheral Performing Organization Address City/[facility] [place] [address] PATHOLOGY AND [facility] MEDICINE [address] * Blood parasite, thin smear (04/29/2019 2:49 AM CLIENT ENGAGEMENT MANAGER) [facility] Blood parasite, No Plasmodium or other blood BETHEL thin smear parasite seen. [facility]DAY Comment: RADIANT Specimen Information HOSPITAL Specimen Source: Blood Specimen Site: Peripheral Specimen Blood - Peripheral Performing Organization Address City/[facility]/ZIP Code P gene Number [facility] [place] DEPARTMENT [place] [id number] PATHOLOGY AND GENOMIC MEDICINE [facility] [address] * Lipid panel (03/23/2019 11:39 AM CLIENT ENGAGEMENT MANAGER) Cholesterol 224 (H) 0 - 199 mg/dL [facility] Triglycerides 116 0 - 149 mg/dL [facility] HDL cholesterol 63 40 - 9,999 mg/dL [facility] LDL cholesterol 165 (H)Comment: Result 0 - 99 mg/dL [facility] obtained by direct LDL [facility]DAY measurement [facility] Lipid panel See below BETHEL interpretation Comment: [facility]DAY Total Cholesterol (mg/dL) RADIANT LDL Cholesterol HOSPITAL (mg/dL) <200 Desirable <100 Optimal 200-239 Borderline-high 100-129 Near or above optimal >=240 High 130-159 Borderline-high 160-189 High >=190 Very high HDL Cholesterol (mg/dL) Triglycerides (mg/dL) <40 Low <150 Normal >=60 High 150-199 Borderline-high 200-499 High >=500 Very high Risk Catergories that modify LDL goals. Risk Catergories LDL goal (mg/dL) CHD and CHD risk equivalent <100 (10-year risk >20%) Multiple (2+) risk factors <130 (10-year risk =<20%) 0-1 risk factors <160 (<10-year risk) Defining levels of lipids in metabolic syndrome Triglycerides >=150 mg/dL HDL Cholesterol Men <40 mg/dL Women <50 mg/dL Non-HDL cholesterol is a second target for therapy in persons with high triglycerides (>=200 mg/dL) Specimen Plasma specimen Performing Organization Address City/State/ZIP Code P gene Number [facility] [place] [place] DEPARTMENT OF [address] [place] [phone] PATHOLOGY AND GENOMIC MEDICINE [facility] [address] * Gram stain (01/31/2019 6:04 AM CLIENT ENGAGEMENT MANAGER) Gram stain No WBC's BETHEL result Few Gram positive rods [facility] Comment: HOSPITAL Specimen Information Specimen Source: Urine Specimen Site: Clean catch Specimen Urine Performing Organization Address City/State/ZIP Code P gene Number [facility] DEPARTMENT OF [address] [place] [address] PATHOLOGY AND GENOMIC MEDICINE BETHEL [facility] [address] [place] [address] HOSPITAL after 12/05/2018 Insurance Type Payer Benefit Subscriber ID Effective Phone Address Plan / Dates Group PPO 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 Explanation Type Date Recorded Advance Directives, 12/02/2019 8:32 AM Living Will and Medical Power of Deck Mechanic Advance Directives, 01/31/2019 5:14 AM Living Will and Medical Power of Deck Mechanic Advance Directives, 01/31/2019 5:14 AM Living Will and Medical Power of Deck Mechanic Advance Directives, 01/31/2019 5:14 AM Living Will and Medical Power of Deck Mechanic Advance Directives, 01/31/2019 5:14 AM Living Will and Medical Power of Deck Mechanic Advance Directives, 01/31/2019 5:14 AM Living Will and Medical Power of Deck Mechanic Advance Directives, 01/31/2019 5:14 AM Living Will and Medical Power of Deck Mechanic Advance Directives, 01/31/2019 5:14 AM Living Will and Medical Power of Deck Mechanic Advance Directives, 08/18/2016 1:52 AM Living Will and Medical Power of Deck Mechanic Advance Directives, 09/06/2016 2:54 AM Living Will and Medical Power of Deck Mechanic Advance Directives, 10/31/2016 1:52 AM Living Will and Medical Power of Deck Mechanic Advance Directives, 12/04/2016 9:01 AM Living Will and Medical Power of Deck Mechanic Advance Directives, 01/31/2019 5:20 AM Living Will and Medical Power of Deck Mechanic Advance Directives, 01/31/2019 5:24 AM Living Will and Medical Power of Deck Mechanic Advance Directives, 03/23/2019 7:19 AM Living Will and Medical Power of Deck Mechanic Advance Directives, 07/30/2019 1:13 AM Living Will and Medical Power of Deck Mechanic Advance Directives, 09/29/2019 4:55 AM Living Will and Medical Power of Deck Mechanic Advance Directives, 10/06/2019 1:13 AM Living Will and Medical Power of Deck Mechanic Advance Directives, 11/03/2019 12:04 AM Living Will and Medical Power of Deck Mechanic Advance Directives, 12/06/2019 10:22 PM Living Will and Medical Power of Deck Mechanic Date Inactivated Comments Code Status Date Activated 11/28/2019 4:00 PM Full Code 11/27/2019 10:12 PM Code Status decision reached by: Patient
--- OUTSIDE RECORDS SUMMARY | 2019-12-07 16:32 | XMS REPORT | Clinical Summary ---
Author Author [facility] Organization [facility] Address Unknown Phone Unavailable Care Team Providers Care Fuel Injection Servicer Name Role Phone PCP Unavailable Allergies Comments Active Allergy Reactions Severity Noted Date Dicyclomine Rash 06/08/2014 Hydrocodone Itching 09/16/2012 Lisinopril Cough 09/08/2014 Metoclopramide Hives 06/08/2014 Ketorolac Hives 06/08/2014 Medications End Date Status Medication Sig Dispensed Refills Start Date Active metFORMIN (GLUCOPHAGE) Take 1 tablet 90 tablet 1 0 500 mg tabletIndications: by mouth 5 PCOS (polycystic ovarian daily (with syndrome) breakfast). Active benzoyl peroxide liquid Apply to 148 g 1 (BENZAC AC WASH) 5 % affected area 5 external washIndications: 2 times Other acne daily. Active dexlansoprazole Take 1 30 capsule 2 (DEXILANT) 30 mg delayed capsule by 5 release mouth daily. capsuleIndications: Gastroesophageal reflux disease without esophagitis Active losartan (COZAAR) 50 mg Take 1 tablet 30 tablet 1 tabletIndications: by mouth 5 Secondary hypertension, daily. unspecified Active traMADol (ULTRAM) 50 mg Take 1 tablet 30 tablet 0 tabletIndications: Low by mouth 5 back pain without every 8 hours sciatica, unspecified as needed for back pain laterality Pain. Active Problems Problem Noted Date LLQ abdominal pain 04/29/2018 Prediabetes 11/25/2014 PCOS (polycystic ovarian syndrome) 07/27/2014 HTN (hypertension) 07/27/2014 Other acne 07/27/2014 Low back pain 07/27/2014 Anemia 07/27/2014 GERD (gastroesophageal reflux disease) 04/03/2012 Unspecified essential hypertension 03/28/2012 Microcytic anemia 03/28/2012 Irregular periods/menstrual cycles 03/28/2012 Immunizations Name Administration Dates Next Due Influenza Vaccine 04/07/2012 (Deferred: Rudolph nt already had this immunization) Pneumoccoccal 04/07/2012 (Deferred: Rudolph nt already had this immunization) Family History Medical History Relation Name Comments Diabetes Father Hypertension Father Cancer Maternal Aunt breast cancer Cancer Maternal Aunt Cancer Maternal Aunt Ovarian cancer Cancer Maternal gastric cancer Grandfather Diabetes Maternal Grandmother Diabetes Mother Hypertension Mother Cancer Paternal Aunt breast cancer Cancer Paternal Aunt breast cancer Cancer Paternal Aunt Ovarian Cancer Cancer Paternal prostate cancer Grandfather Cancer Paternal breast cancer Grandmother Cancer Paternal Ovarian cancer Uncle Relation Name Status Comments Father Alive Maternal Aunt Maternal Aunt Maternal Aunt Maternal Grandfather Maternal Grandmother Mother Alive Paternal Aunt Paternal Aunt Paternal Aunt Paternal Grandfather Paternal Grandmother Paternal Uncle Sister Alive Social History Date Tobacco Use Types Packs/Day Years Used Never Smoker Smokeless Tobacco: Never Used Tobacco Cessation: Counseling Given: No Drinks/Week oz/Week Comments Alcohol Use No Sex Assigned at Date Recorded Not on file Industry Job Start Date Occupation Not on file Not on file Not on file Travel End Travel History Travel Start No recent travel history available. Last Filed Vital Signs Not on file Plan of Treatment Health Maintenance Due Date Last Done Comments Cervical Cancer Scrn (3 03/28/2015 03/28/2012 Yrs) Results Not on fileafter 12/05/2018 Insurance Type Payer Benefit Subscriber ID Effective Phone Address Plan / Dates Group [facility] SELF-PAY SELF-PAY xxxxxxxxx 2014-P [phone] [address] [place] [address] Advance Directives Date Inactivated Comments Code Status Date Activated 04/08/2012 2:30 PM Full Code 2012 9:56 AM 04/03/2012 4:35 PM Full Code 04/02/2012 2:16 AM
--- OUTSIDE RECORDS SUMMARY | 2019-12-07 16:33 | XMS REPORT | Continuity of Care Document ---
Author Author [facility] t Organization [facility] Address [address] [place] [address] Phone Unavailable Care Team Providers [employer] Front Desk Clerk Name Role Phone NO, PCP PCP Unavailable Abhishek JEAN-BAPTISTE, Chuck Jacob [facility] [phone] MARGA DAVIDSON Att[facility] Unavailable Kayla SAMANIEGO, Armando Fields Attphys Woodrow SAMANIEGO, Shine Attphys Colby SAMANIEGO, Tejal Nunes Attphys Chaim SAMANIEGO, Anyi Lee Attphys Sera SAMANIEGO, Leonor Attphys Malorie Gamez MD, Edwin Torres Att[facility] [phone] Jason SAMANIEGO, Harry Attphys Bam SAMANIEGO, Edwin Jasmine Attphys Kendall SAMANIEGO, Sandra Perez Attphys Marcos SAMANIEGO, Raven Sánchez Attphys Derek SAMANIEGO, Lety Ordoñez Attphys Jamila SAMANIEGO, Ruddy Attphys Mendez Parra DO Att[facility] [phone] Hany Renner DO Att[facility] [phone] SHINE TROY Adm[facility] Unavailable JESUS RUCKER Adm[facility] Unavailable Payers Payer Name Policy Type Policy Number Effective Date Expiration Date S ismael [employer]HC[employer]ONE/SYED [id number] 2019-PresentPPO [id number] 2019 00:00:00 Rolo Andrea Problems Condition Name Condition Details Condition Category Status Onset Date Resolution Date Last Treatment Date Treating Clinician Comments Source Benign essential hypertension Benign essential hypertension Disease Active 2019-11-28 00:00:00 Rolo Andrea Anemia Anemia Disease Active 2019-11-27 00:00:00 Rolo Andrea Abnormal uterine bleeding (AUB) Abnormal uterine bleeding (AUB) Dis ease Active 2019-11-27 00:00:00 Rolo Andrea Obesity Obesity Disease Active 2019-11-27 00:00:00 Rolo Andrea PCOS (polycystic ovarian syndrome) PCOS (polycystic ovarian synd aaron) Disease Active 2019-11-27 00:00:00 Rosa Isela Dillardist Malingering Malingering Disease Active 2019-10-06 00:00:00 Rolo Andrea Gastroparesis Gastroparesis Disease Active 2019-04-29 00:00:00 Rolo Andrea Hypokalemia Hypokalemia Disease Active 2019-04-29 00:00:00 Rolo Andrea Hypertension Hypertension Disease Active 2019-04-29 00:00:00 Rolo Andrea Intractable vomiting Intractable vomiting Disease Active 00:00:00 Rolo Andrea LLQ abdominal pain LLQ abdominal pain Disease Active 2018-04-29 00:00:0 0 [employer] Prediabetes Prediabetes Disease Active 2014-11-25 00:00:00 [employer] PCOS (polycystic ovarian syndrome) PCOS (polycystic ovarian synd aaron) Disease Active 2014-07-27 00:00:00 [employer] HTN (hypertension) HTN (hypertension) Disease Active 2014-07-27 00:00:0 0 [employer] Other acne Other acne Disease Active 2014-07-27 00:00:00 [facility] Low back pain Low back pain Disease Active 2014-07-27 00:00:00 [facility] Anemia Anemia Disease Active 2014-07-27 00:00:00 [facility] GERD (gastroesophageal reflux disease) GERD (gastroesophagea l reflux disease) Disease Active 2012-04-03 00:00:00 [facility] Unspecified essential hypertension Unspecified essential hyperte nsion Disease Active 2012-03-28 00:00:00 [facility] Microcytic anemia Microcytic anemia Disease Active 2012-03-28 00:00:00 [facility] Irregular periods/menstrual cycles Irregular periods/menstrual c ycles Disease Active 2012-03-28 00:00:00 [facility] Urinary tract infection Problem Active [facility] Hypokalemia Hypokalemia Disease Resolved 2019-11-27 00:00:00 202 00:00:00 2019-11-28 08:10:16 [facility] Allergies, Adverse Reactions, Alerts Allergy Name Allergy Type Status Severity Reaction(s) Onset Date Inacti ve Date Treating Clinician Comments Source Fish Containing Products FA Active MO 2017-05-31 00:00:00 [facility] shellfish derived FA Active MO 2017-05-31 00:00:00 [facility] Lisinopril Propensity to adverse reactions to drug Active Cough 2014-09-08 00:00:00 [facility] Dicyclomine Propensity to adverse reactions to drug Active Rash 2014-06-08 00:00:00 [facility] Metoclopramide Propensity to adverse reactions to drug Active Hives 2014-06-08 00:00:00 [facility] Ketorolac Propensity to adverse reactions to drug Active Hives 2014-06-08 00:00:00 [facility] Hydrocodone Propensity to adverse reactions to drug Active Itching 2012-09-16 00:00:00 [facility] Family History Family Member Diagnosis Comments Start Date Stop Date Source Natural father Diabetes [facility] Natural father Hypertension [facility] Maternal aunt Cancer [facility] Maternal grandfather [facility] Maternal grandmother Diabetes [facility] Natural mother Diabetes [facility] Natural mother Hypertension [facility] Paternal aunt Cancer [facility] Paternal grandfather [facility] Paternal grandmother [facility] Paternal uncle Cancer [facility] Social History Social Habit Start Date Stop Date Quantity Comments Source Sex Assigned [facility] Tobacco use and exposure 2019-12-06 00:00:00 2019-12-06 00:00:00 Ban maier used Rolo Andrea Alcohol intake 2018-04-29 00:00:00 2018-04-29 00:00:00 Current non-drinker of alcohol (finding) [facility] Smoking Status Start Date Stop Date Source Never smoker [facility] Medications Ordered Medication Name Filled Medication Name Start Date Stop Da te Current Medication? Ordering Clinician Indication Dosage Frequency Signature (SIG) Comments Components Source traMADoL (ULTRAM) 50 mg tablet 2019-12-06 22:54:01 2019-11-12 6 00:00:00 No acute pain 50mg Q8H Take 50 mg by mouth every 8 (eight) hours as needed for moderate pain .acute pain. Rolo solomon sucralfate (CARAFATE) 1 gram tablet 2019-12-06 00:00:0 0 2020-01-05 23:59:00 Yes 1g Q.[id number] Take 1 tablet (1 g total) by mouth 3 (three) times a day for 30 days. Rolo hogue ondansetron (ZOFRAN) 4 MG tablet 2019-12-06 00:00:00 01-04 23:59:00 Yes 4mg Q6H Take 1 tablet (4 mg total) by mouth every 6 (six) hours as needed for nausea or vomiting for up to 30 days. Nausea and vomiting Rolo Andrea traMADoL (ULTRAM) 50 mg tablet 2019-12-06 00:00:00 2019-11-12 9 23:59:00 Yes acute pain 50mg Q8H Take 1 tablet (50 mg total) by mouth every 8 (eight) hours as needed for moderate pain for up to 3 days .acute pain. Rolo Andrea sucralfate (CARAFATE) 1 gram tablet 2019-12-02 09:35:2 8 2019-12-02 00:00:00 No 1g Q.[id number] Take 1 g by mouth 3 (thre e) times a day. Rolo Andrea ondansetron (ZOFRAN) 4 MG tablet 2019-12-02 09:35:28 2019-11 00:00:00 No 4mg Q6H Take 4 mg by mouth e very 6 (six) hours as needed for nausea or vomiting. Nausea and vomiting Rolo hoffmann esomeprazole (NexIUM) 20 MG capsule 2019-12-02 07:18:16 Yes 20mg QD Take 20 mg by mouth daily before breakfast. H debbie Andrea ondansetron (ZOFRAN) 4 MG tablet 2019-12-02 00:00:00 2019-11 00:00:00 No 4mg Q6H Take 1 tablet (4 mg total) by mouth every 6 (six) hours as needed for nausea or vomiting for up to 30 days. Nausea and vomiting Rolo Andrea sucralfate (CARAFATE) 1 gram tablet 2019-12-02 00:00:0 0 2019-12-06 00:00:00 No 1g Q.[id number] Take 1 tablet (1 g total) by mouth 3 (three) times a day for 30 days. Rolo Andrea ferrous sulfate 325 (65 FE) MG tablet 2019-11-28 12:00:31 Yes 325mg Q.3431787064372314105A Take 325 mg by mouth 3 (three) times a day with meals. Rolo Andrea sucralfate (Carafate) 100 mg/mL suspension 09-28 00:00:00 2019-10-29 23:59:00 No 1g Q.0443910134752458984O Ta ke 10 mL (1 g total) by mouth 3 (three) times a day for 30 days. Rolo Andrea amLODIPine (NORVASC) 10 mg tablet 2019-09-29 00:00:00 2019 23:59:00 No 10mg QD Take 1 tablet (10 mg total) by mouth eyad ly for 30 days. Rolo Andrea traMADoL (ULTRAM) 50 mg tablet 2019-09-29 00:00:00 2019-09-11 5 23:59:00 No acute pain 50mg Q6H Take 1 tablet (50 mg total) by mouth every 6 (six) hours as needed for severe pain for up to 5 days .acute pain. Rolo Andrea ondansetron (ZOFRAN) 4 MG tablet 2019-07-30 00:00:00 2019-08 23:59:00 No 4mg Q6H Take 1 tablet (4 mg total) by mouth every 6 (six) hours as needed for nausea or vomiting for up to 30 days. Kurt Andrea atorvastatin (LIPITOR) 40 MG tablet 2019-03-25 00:00:0 0 2019-04-24 23:59:00 No 40mg QD Take 1 tablet (40 mg total) by mouth nig htly for 30 days. Rolo Andrea ondansetron ODT (ZOFRAN-ODT) 4 MG disintegrating tablet 2019-03-25 00:00:00 2019-04-24 23:59:00 No 4mg Q8H Take 1 tablet (4 mg total) by mouth every 8 (eight) hours as needed for nausea or vomiting for up to 30 days. Rolo Andrea metoclopramide (REGLAN) 10 MG tablet 2019-03-25 00:00: 00 2019-04-24 23:59:00 No 10mg Q.25D Take 1 tablet ( 10 mg total) by mouth 4 (four) times a day for 30 days. Rolo Andrea traMADol (ULTRAM) 50 mg tablet 2019-03-25 00:00:00 2019-03-12 9 23:59:00 No acute pain 50mg Q6H Take 1 tablet (50 mg total) by mouth every 6 (six) hours as needed for moderate pain for up to 5 days .acute pain. Rolo Andrea medroxyPROGESTERone (DEPO-PROVERA) 150 mg/mL injection 2019-03-23 11:51:04 2019-03-23 00:00:00 No 1mL 1 mL. Rolo Andrea traMADol (ULTRAM) 50 mg tablet 2019-03-23 11:50:54 2019-03-12 2 00:00:00 No Chronic abdominal pain tramadol 50 mg ta blet TAKE 1 TABLET BY MOUTH 3 TIMES A DAY NEEDED Rolo Andrea metFORMIN (GLUCOPHAGE) 500 mg tablet 2019-03-23 11:50: 36 2019-03-23 00:00:00 No 500mg Q.5D Take 500 mg by mouth 2 (two) times a day with meals. Rolo Andrea ondansetron (ZOFRAN) 4 MG tablet 2019-01-31 00:00:00 2019-02 23:59:00 No 4mg Q8H Take 1 tablet (4 mg total) by mouth every 8 (eight) hours as needed for nausea or vomiting for up to 30 days. Kurt Andrea famotidine (PEPCID) 20 MG tablet 2019-01-31 00:00:00 2019-02 23:59:00 No 20mg Q.5D Take 1 tablet (20 mg total) by mouth 2 (two) times a day for 30 days. Rolo Andrea amLODIPine (NORVASC) 10 mg tablet 2017-10-31 00:00:00 2019 00:00:00 No Essential hypertension 10mg QD Take 1 tablet (10 mg total) by mouth daily. Rolo Andrea fluconazole (DIFLUCAN) 150 MG tablet 2017-10-27 00:00: 00 2019-03-23 00:00:00 No Yeast infection involving the vagina and surrounding area TK 1 T PO QD Rolo Andrea sucralfate (CARAFATE) 1 gram tablet 2017-09-26 00:00:0 0 2019-09-29 00:00:00 No Chronic abdominal pain 1g Q.[id number] 333D Take 1 g by mouth 3 (three) times a day. Rolo Andrea dexlansoprazole (DEXILANT) 30 mg delayed release capsule 2014-11-25 00:00:00 Yes Gastroesophageal reflux disease without esophag itis 30mg QD Take 1 capsule by mouth daily. [facility] losartan (COZAAR) 50 mg tablet 2014-11-25 00:00:00 Yes Secondary hypertension, unspecified 50mg QD Take 1 tablet by mouth daily. [facility] traMADol (ULTRAM) 50 mg tablet 2014-11-25 00:00:00 Yes Low back pain without sciatica, unspecified back pain laterality 50mg Take 1 tablet by mouth every 8 hours as needed for Pain. [facility] metFORMIN (GLUCOPHAGE) 500 mg tablet 2014-07-27 00:00:00 Yes PCOS (polycystic ovarian syndrome) 500mg QD Take 1 tab let by mouth daily (with breakfast). [facility] benzoyl peroxide liquid (BENZAC AC WASH) 5 % external wash 2014-07-27 00:00:00 Yes Other acne Q.5D Apply to affected area 2 ti mes daily. [facility] Vital Signs Vital Name Observation Time Observation Value Comments Source Systolic blood pressure 2019-12-06 23:00:00 189 mm[Hg] Rolo Andrea Diastolic blood pressure 2019-12-06 23:00:00 118 mm[Hg] Rolo Andrea Heart rate 2019-12-06 23:00:00 35 /min Rolo Andrea Oxygen saturation in Arterial blood by Pulse oximetry 12-05 23:00:00 62 /min Rolo Andrea Body temperature 2019-12-06 22:18:00 37.33 Brook Christiano Andrea Respiratory rate 2019-12-06 22:18:00 18 /min Christiano Andrea Body height 2019-12-06 21:26:00 162.6 cm Rolo Andrea Body weight 2019-12-06 21:26:00 90.719 kg Rolo Andrea BMI 2019-12-06 21:26:00 34.33 kg/m2 Rolo Andrea Body Temperature 2019-12-06 04:59:00 98.9 [degF] [facility] Weight 2019-12-06 02:27:00 204 [lb_av] [facility] BMI (Body Mass Index) 2019-12-06 02:27:00 35.0 kg/m2 [facility] Procedures Procedure Date / Time Performed Performing Clinician [facility] e URINALYSIS SCREEN AND MICROSCOPY, WITH REFLEX TO CULTURE 22:21:00 Johnson Weiss HCG QUALITATIVE, URINE SCREEN 2019-12-06 22:21:00 Johnson Weiss URINE CULTURE 2019-12-06 22:15:00 Johnson Weiss CBC WITH PLATELET AND DIFFERENTIAL 2019-12-06 21:45:00 Priya Weiss COMPREHENSIVE METABOLIC PANEL 2019-12-06 21:45:00 Johnson Weiss LACTIC ACID LEVEL, SEPSIS - NOW AND REPEAT 2X EVERY 3 HOURS 2019-12-06 21:45:00 Johnson Weiss ESTIMATED GFR 2019-12-06 21:45:[address] of abdomen and pelvis without contrast 2019-12-06 00:00:00 [facility] XR CHEST 2 VW 2019-12-02 07:56:23 [facility], REFLEX NEGATIVE TO RPP 2019-12-02 07 :42:00 Tim Sheppard RESPIRATORY PATHOGEN PANEL 2019-12-02 07:42:00 Tim Sheppard HC COMPLETE BLD COUNT W/AUTO DIFF 2019-12-02 07:41:00 Himanshu Sheppard COMPREHENSIVE METABOLIC PANEL 2019-12-02 07:41:00 Tim Sheppard ESTIMATED GFR 2019-12-02 07:41:00 Tim Sheppard [facility] LACTIC ACID LEVEL, SEPSIS - NOW AND REPEAT 2X EVERY 3 HOURS 2019-12-02 07:41:00 Tim Sheppard URINE CULTURE 2019-12-02 07:25:00 Tim Sheppard [facility] URINALYSIS SCREEN AND MICROSCOPY, WITH REFLEX TO CULTURE 202 07:23:00 Tim Sheppard HCG QUALITATIVE, URINE SCREEN 2019-12-02 07:23:00 Tim Sheppard URINE CULTURE 2019-11-28 04:49:00 Leonor Zamora [facility] COVID-19 QUALITATIVE PCR 2019-11-28 04:28:00 Leonor Zamora URINE DRUGS OF ABUSE SCREEN 2019-11-28 04:28:00 Leonor Zamora URINALYSIS SCREEN AND MICROSCOPY, WITH REFLEX TO CULTURE 202 04:28:00 Leonor Zamora HCG QUALITATIVE, SERUM SCREEN 2019-11-28 02:29:00 Page Castro TYPE AND SCREEN 2019-11-28 02:29:00 Page Castro [facility] PREPARE RBC 2019-11-28 02:29:00 Page Castro [facility] US PELVIC TRANSABDOMINAL 2019-11-28 00:05:29 Leonor Zamora US PELVIC TRANSVAGINAL 2019-11-28 00:05:29 Leonor Zamora [facility] CBC WITH PLATELET AND DIFFERENTIAL 2019-11-27 22:42:00 Cynthia Zamora COMPREHENSIVE METABOLIC PANEL 2019-11-27 22:42:00 Leonor Zamora HEMOGLOBIN A1C 2019-11-27 22:42:00 Leonor Zamora james MAGNESIUM LEVEL 2019-11-27 22:42:00 Leonor Zamora odjefe PARTIAL THROMBOPLASTIN TIME (PTT) 2019-11-27 22:42:00 Christie Zamora PROTHROMBIN TIME WITH INR 2019-11-27 22:42:00 Leonor Zamora T4, FREE 2019-11-27 22:42:00 Leonor Zamora THYROID STIMULATING HORMONE 2019-11-27 22:42:00 Leonor Zamora ESTIMATED GFR 2019-11-27 22:42:00 Leonor Zamora odjefe MANUAL DIFFERENTIAL 2019-11-27 22:42:00 Leonor Zamora INFLUENZA ANTIGEN TEST, REFLEX NEGATIVE TO RPP 2019-11-03 00 :42:00 Glendy Gilbert RESPIRATORY PATHOGEN PANEL 2019-11-03 00:42:00 Cate Gilbert COVID-19 QUALITATIVE PCR 2019-11-03 00:41:00 Wally Gilbert ael Edwin Andrea HC COMPLETE BLD COUNT W/AUTO DIFF 2019-11-03 00:29:00 Glendy Gilbert COMPREHENSIVE METABOLIC PANEL 2019-11-03 00:29:00 Glendy Gilbert HCG QUALITATIVE, SERUM SCREEN 2019-11-03 00:29:00 Glendy Gilbert ESTIMATED GFR 2019-11-03 00:29:00 Glendy Gilbert TYPE AND SCREEN 2019-10-06 09:15:00 Shirley Gutierrez PREPARE RBC 2019-10-06 09:15:00 Shirley Gutierrez HC COMPLETE BLD COUNT W/AUTO DIFF 2019-10-06 02:24:00 Maria T Galvez COMPREHENSIVE METABOLIC PANEL 2019-10-06 02:24:00 Matthias Galvez LIPASE LEVEL 2019-10-06 02:24:00 Matthias Galvez ESTIMATED GFR 2019-10-06 02:24:00 Matthias Galvez HCG QUALITATIVE, URINE SCREEN 2019-10-06 02:10:00 Matthias Galvez URINALYSIS SCREEN AND MICROSCOPY, WITH REFLEX TO CULTURE 202 02:10:00 Matthias Galvez INSERT PERIPHERAL IV 2019-10-06 01:29:21 Matthias Galvez XR CHEST 1 VW PORTABLE 2019-10-06 01:21:23 Matthias Galvez COVID-19 QUALITATIVE PCR 2019-10-06 00:45:00 Matthias Galvez INFLUENZA ANTIGEN TEST, REFLEX NEGATIVE TO RPP 2019-10-06 00 :44:00 Matthias Galvez RESPIRATORY PATHOGEN PANEL 2019-10-06 00:44:[address] ABDOMEN PELVIS W CONTRAST 2019-09-29 06:35:51 Kenroy Kuhn HC COMPLETE BLD COUNT W/AUTO DIFF 2019-09-29 05:30:00 Lenin Kuhn TYPE AND SCREEN 2019-09-29 05:30:00 Kenroy Kuhn PROTHROMBIN TIME WITH INR 2019-09-29 05:30:00 Kenroy Kuhn PARTIAL THROMBOPLASTIN TIME (PTT) 2019-09-29 05:30:00 Lenin Kuhn COMPREHENSIVE METABOLIC PANEL 2019-09-29 05:30:00 Kenroy Kuhn HCG QUALITATIVE, SERUM SCREEN 2019-09-29 05:30:00 Kenroy Kuhn ESTIMATED GFR 2019-09-29 05:30:00 Kenroy Kuhn HC COMPLETE BLD COUNT W/AUTO DIFF 2019-07-30 01:16:00 Kendall, Din h Sandra Andrea COMPREHENSIVE METABOLIC PANEL 2019-07-30 01:16:00 Kendall, Chris Yoel Andrea LIPASE LEVEL 2019-07-30 01:16:00 Kendall, Chris Yoeli [facility] ESTIMATED GFR 2019-07-30 01:16:00 Kendall, Chris Yoeli [facility] URINE CULTURE 2019-07-30 01:07:00 Kendall, Chris Sandra [facility] URINALYSIS SCREEN AND MICROSCOPY, WITH REFLEX TO CULTURE 202 00:46:00 KendallChris HCG QUALITATIVE, URINE SCREEN 2019-07-30 00:46:00 Chris Argueta i Rolo Andrea SURGICAL PATHOLOGY REQUEST 2019-04-30 12:56:00 Shine Troy EGD WITH BIOPSY 2019-04-30 11:28:00 Gonzalo Rodríguez Rolo Jacinto [facility] POTASSIUM LEVEL 2019-04-30 09:24:00 Shine Troy [facility] POC GLUCOSE 2019-04-30 06:08:00 Jesus Rucker CBC WITH PLATELET AND DIFFERENTIAL 2019-04-30 04:51:00 Jacinta Woo BASIC METABOLIC PANEL 2019-04-30 04:51:00 Nubia Woo ESTIMATED GFR 2019-04-30 04:51:00 Nubia Woo MANUAL DIFFERENTIAL 2019-04-30 04:51:00 Nubia Woo HEMOGLOBIN A1C 2019-04-30 04:51:00 Shine Troy [facility] POC GLUCOSE 2019-04-29 20:15:00 Lise Rukcera Amanibal Andrea POC GLUCOSE 2019-04-29 16:18:00 Lise [address]era Anyi Andrea CT ABDOMEN PELVIS W CONTRAST 2019-04-29 05:40:19 Kenroy Kuhn BLOOD CULTURE, AEROBIC & ANAEROBIC 2019-04-29 04:40:00 Keyur Kuhn BLOOD CULTURE, AEROBIC & ANAEROBIC 2019-04-29 04:36:00 Keyur Kuhn INFLUENZA ANTIGEN TEST, REFLEX NEGATIVE TO RPP 2019-04-29 04 :18:00 Kenroy Kuhn RESPIRATORY PATHOGEN PANEL 2019-04-29 04:18:00 Kenroy Kuhn MALARIA ANTIGEN WITH SMEAR 2019-04-29 03:49:00 Kenroy Kuhn [facility] CBC WITH PLATELET AND DIFFERENTIAL 2019-04-29 03:49:00 Keyur Kuhn COMPREHENSIVE METABOLIC PANEL 2019-04-29 03:49:00 Kenroy Kuhn LIPASE LEVEL 2019-04-29 03:49:00 Kenroy Kuhn ESTIMATED GFR 2019-04-29 03:49:00 Kenroy Kuhn MANUAL DIFFERENTIAL 2019-04-29 03:49:00 Kenroy Kuhn BLOOD PARASITE, THIN SMEAR 2019-04-29 02:49:00 Kenroy Kuhn URINE CULTURE 2019-04-29 02:22:00 Kenroy Kuhn URINALYSIS SCREEN AND MICROSCOPY, WITH REFLEX TO CULTURE 202 02:22:00 Kenroy Kuhn HCG QUALITATIVE, URINE SCREEN 2019-04-29 02:22:00 Kenroy Kuhn POC GLUCOSE 2019-03-25 05:58:00 Janes Parra POC GLUCOSE 2019-03-24 20:32:00 Janes Parra BASIC METABOLIC PANEL 2019-03-24 20:07:00 Glendy Travis ESTIMATED GFR 2019-03-24 20:07:00 Glendy Travis POC GLUCOSE 2019-03-24 16:08:00 Janes Parra BASIC METABOLIC PANEL 2019-03-24 13:55:00 Janes Parra ESTIMATED GFR 2019-03-24 13:55:00 Janes Parra BASIC METABOLIC PANEL 2019-03-24 11:46:00 Glendy Travis ESTIMATED GFR 2019-03-24 11:46:00 Glendy Travis MAGNESIUM LEVEL 2019-03-24 11:46:00 Glendy Travis POC GLUCOSE 2019-03-24 11:26:00 Janes Parra POC GLUCOSE 2019-03-24 06:38:00 Shine Troy CBC WITH PLATELET AND DIFFERENTIAL 2019-03-24 05:11:00 Priya Weiss COMPREHENSIVE METABOLIC PANEL 2019-03-24 05:11:00 Johnson Weiss ESTIMATED GFR 2019-03-24 05:11:00 Johnson Weiss POC GLUCOSE 2019-03-23 12:29:00 Shine Troy HEMOGLOBIN A1C 2019-03-23 11:39:00 Sarai Diaz [facility] LIPID PANEL 2019-03-23 11:39:00 Sar[address] Diaz on [facility] CT ABDOMEN PELVIS W CONTRAST 2019-03-23 11:08:01 AbhishekJohnson [facility] URINALYSIS SCREEN AND MICROSCOPY, WITH REFLEX TO CULTURE 202 10:07:00 Johnson Weiss [facility] HCG QUALITATIVE, URINE SCREEN 2019-03-23 10:07:00 Johnson Weiss [facility] HC COMPLETE BLD COUNT W/AUTO DIFF 2019-03-23 07:06:00 Abhishek Maria Victoria [facility] COMPREHENSIVE METABOLIC PANEL 2019-03-23 07:06:00 Johnson Weiss ESTIMATED GFR 2019-03-23 07:06:[address] ABDOMEN PELVIS W CONTRAST 2019-01-31 06:46:56 Shirin Renner URINE CULTURE 2019-01-31 06:04:00 Benigno Renner [facility] GRAM STAIN 2019-01-31 06:04:00 Benigno Renner [facility] HCG QUALITATIVE, URINE SCREEN 2019-01-31 05:48:00 Rubio Renner URINALYSIS SCREEN AND MICROSCOPY, WITH REFLEX TO CULTURE 201 11-20-21 05:48:00 Benigno Renner HC COMPLETE BLD COUNT W/AUTO DIFF 2019-01-31 05:04:00 Benigno Renner COMPREHENSIVE METABOLIC PANEL 2019-01-31 05:04:00 Rubio Renner ESTIMATED GFR 2019-01-31 05:04:00 Benigno Renner [facility] Plan of Care Planned Activity Planned Date Details Comments Source Future Scheduled Test 2019-10-11 00:00:00 INFLUENZA VACCINE [code = INFLUENZA VACCINE] [facility] Future Scheduled Test 2015-03-28 00:00:00 Screening for philly gnant neoplasm of cervix (procedure) [code = 050881236] [facility] Scheduled Test 2011 00:00:00 Screening for philly gnant neoplasm of cervix (procedure) [code = 729648720] Rolo kay Instructions Urinary Tract Infection - [facility] Encounters Start Date/Time End Date/Time Encounter Type Admission Type [facility] Care Department Encounter ID Source 2019-12-06 02:25:00 2019-12-06 05:08:00 Departed Emergency Room 1 MARGA DAVIDSON [facility] [id number] [facility] 2019-12-06 00:00:00 2019-12-06 00:00:00 Emergency KEHINDESOURAVJOHNSON [place] [id number] [facility] 2019-12-02 00:00:00 2019-12-02 00:00:00 Emergency HURTHAIDER ROSS [place] [id number] [facility] 2019-11-27 00:00:00 2019-11-28 00:00:00 Outpatient ANGY MAYS UD [facility] [id number] [facility] 2019-11-02 00:00:00 2019-11-03 00:00:00 Emergency GLENDY WANG [place] [id number] [facility] 2019-10-06 00:00:00 2019-10-06 00:00:00 Outpatient JAYNEORESTESLISE [place] [id number] [facility] 2019-09-29 00:00:00 2019-09-29 00:00:00 Emergency KENROY KUHN [place] [id number] [facility] 2019-07-30 00:00:00 2019-07-30 00:00:00 Emergency CHRIS ARGUETA [place] [id number] [facility] 2019-04-29 00:00:00 2019-04-30 00:00:00 Inpatient SHINE TROY [facility] [id number] [facility] 2019-03-23 00:00:00 2019-03-25 00:00:00 Outpatient DARREN PARRA [facility] [id number] [facility] 2019-01-31 00:00:2019-01-31 00:00:00 Emergency RUBIO RENNER [facility] 064 [id number] [facility] Results Test Description Test Time Test Comments Results Result Comments Source Urinalysis screen and microscopy, with reflex to culture 22:39:53 Test Item Specimen site (test code = 3133990) Clean catch Color, UA (test code = 5778-6) Yellow Appearance, UA (test code = 5767-9) Clear Specific gravity, UA (test code = 5811-5) 1.018 1.001-1.035 pH, UA (test code = 5803-2) 6.0 5.0-8.5 Protein, UA (test code = 34553-0) Negative Negative Glucose, UA (test code = 98345-8) Negative Negative Ketones, UA (test code = 2514-8) Negative Negative Bilirubin, UA (test code = 5770-3) Negative Negative Blood, UA (test code = 5794-3) Small Negative A Nitrite, UA (test code = 5802-4) Negative Negative Urobilinogen, UA (test code = 37952-2) Negative <2.0 Leukocyte esterase, UA (test code = 5799-2) Negative Negative Epithelial cells, UA (test code = 5787-7) Many /HPF WBC, UA (test code = 5821-4) 4 0- 5 /HPF RBC, UA (test code = 61767-8) 1 0- 5 /HPF Bacteria, UA (test code = 19102-2) None seen None seen Yeast, UA (test code = 86925-0) None seen Yeast with pseudohyphae, UA (test code = 03954-4) None seen Lab Interpretation (test code = 62106-5) Abnormal [facility] [id number] 22:39:47* Test Item Value Reference Range Interpretation Comments Urine culture (test code = 1272000) SEE COMMENT Bacteriuria screen negative. [facility] [id number] 22:37:22* Test Item Value Reference Range Interpretation Comments Sodium (test code = 2951-2) 140 135- 150 mEq/L Potassium (test code = 2823-3) 3.2 3.5- 5.0 mEq/L L Chloride (test code = 2075-0) 105 98- 112 mEq/L CO2 (test code = 2027-9) 22 mmol/L 24-31 L Anion gap (test code = 77483-0) 13@ANIO 7- 15 mEq/L BUN (test code = 3094-0) 6 mg/dL 7-18 L Creatinine (test code = 2160-0) 0.80 mg/dL 0.5-0.9 Glucose (test code = 2345-7) 92 mg/dL 65-100 Calcium (test code = 05354-5) 9.6 mg/dL 8.3-10.2 Protein (test code = 2885-2) 7.9 g/dL 6.3-8.3 Albumin (test code = 1751-7) 4.1 g/dL 3.5-5 A/G ratio (test code = 1759-0) 1.1 0.7-3.8 Alkaline phosphatase (test code = 6768-6) 79 U/L 0-104 AST (test code = 1920-8) 18 U/L 10-35 ALT (test code = 1742-6) 8 U/L 5-50 Total bilirubin (test code = 1974-2) 0.4 mg/dL 0.2-1.2 Lab Interpretation (test code = 44601-5) Abnormal [facility] MethodistEstimated [id number] 22:37:19* Test Item Value Reference Range Interpretation Comments Estimated GFR (test code = 5488) >=90 mL/min/1.73 m2 Catergory Units InterpretationG1 >=90 Normal or highG2 60-89 Mildly sjtekmkgvB1v 45-59 Mildly to moderately zdoeglnbiC4h 30-44 Moderately to severely decreasedG4 15-29 Severely decreasedG5 <15 Kidney failureThe eGFR was calculated using the Chronic Kidney Disease Epidemiology Collaboration (CKD-EPI) equation. Interpretation is based on recommendations of the National Kidney Foundation-Kidney Disease Outcomes Quality Initiative (NKF-KDOQI) published in 2014. [facility] MethodisthCG qualitative, urine vnjwny5593-26-40 22:36:07* Test Item Value Reference Range Interpretation Comments hCG qualitative, urine (test code = 2106-3) Negative Negative The manufacturers stated sensitivity of HcG test for serum is >/= 10 mIU/ml and urine is >/= 20mIU/ml. [facility] MethodistLactic acid level, SEPSIS - Now and repeat 2x every 3 hours 2019-12-06 22:19:54* Test Item Value Reference Range Interpretation Comments Lactic acid (test code = 97752-1) 2.0 mmol/L 0.5-2.2 [facility] MethodistCBC with platelet and izeepopdhpge7642-64-74 22:17:20* Test Item Value Reference Range Interpretation Comments WBC (test code = 66776-4) 8.8 4.2- 11.0 k/uL RBC (test code = 35171-3) 4.31 m/uL 4.04-5.86 HGB (test code = 718-7) 8.9 g/dL 11.5-15.3 L HCT (test code = 4544-3) 29.9 % 34-45 L MCV (test code = 787-2) 69.4 fL 80-98 L MCH (test code = 785-6) 20.6 pg 27-34 L MCHC (test code = 786-4) 29.8 g/dL 31.5-36.5 L RDW - SD (test code = 60708-0) 56.7 fL 37-51 H MPV (test code = 57716-5) 9.7 fL 7.4-10.4 Platelet count (test code = 24772-3) 502 150- 400 k/uL H Nucleated RBC (test code = 31980-4) 0.00 /100 WBC Neutrophils (test code = 09265-7) 73.0 % 36-66 H Lymphocytes (test code = 67731-7) 21.5 % 24-44 L Monocytes (test code = 09937-0) 4.1 % 0-6 Eosinophils (test code = 57901-4) 0.5 % 0-6 Basophils (test code = 72106-1) 0.7 % 0-1.2 Immature granulocytes (test code = 75738-9) 0.2 % 0-1 Lab Interpretation (test code = 93037-9) Abnormal [facility]CT ABDOMEN/PELVIS [id number] 04:07:00 [place] [address] Patient Name: DILSHAD PRETTY MR #: [id number] : 1990 Age/Sex: 29/F Req #: [id number] Adm Physician: Ordered by: MARGA DAVIDSON DO Report #: [id number] Location: ER Room/Bed: Procedure: [id number] CT/CT ABDO MEN/PELVIS WO Exam Date: Exam Time: REPORT STATUS: Signed EXAM: CT Abdomen and Pel vis WITHOUT contrast INDICATION: L flank pain COMPARISON: None. TECHNIQUE: Abdomen and pelvis were scanned utilizing a multidetector helical scanner from the lung base to the pubic symphysis without administration of IV contrast. Absence of intravenous contrast decreases sensitivity for detection of focal lesions and vascular pathology. Coronal and sagittal reformations were obtained. Routine protocol was performed. IV CONTRAST: None ORAL CONTRAST: Water COMPLICATIONS: None RADIATION DOSE: Total DLP: 642.58 mGy*cm Estimated effective dose: (DLP x 0.015 x size factor) mSv CTDIvol has been reviewed. It is below the limits set by the Radiation Protocol Committee (RPC). FINDINGS: LINES and TUBES: None. LOWER THORAX: Unremarkable HEPATOBILIARY: Unenhanced liver is unr emarkable. No biliary ductal dilation. GALLBLADDER: Collapsed, limiting e valuation. SPLEEN: No splenomegaly. PANCREAS: No focal masses or duct al dilatation. ADRENALS: No adrenal nodules KIDNEYS/URETERS: No hydronephrosis. Limited for evaluation of renal parenchyma without intravenous contrast. No stones. GI TRACT: No abnormal distention, wall thickening, or evidence of bowel obstruction. Appendix is normal. PELVIC ORGANS/ BLADDER: Bladder is not distended. Several pelvic phleboliths. Vaginal tampon in place. 1.6 cm left ovarian cyst. LYMPH NODES: No lymphadenopathy. V ESSELS: Unremarkable. PERITONEUM / RETROPERITONEUM: No free air or fluid. BONES: Unremarkable. SOFT TISSUES: Unremarkable. IMPRE SSION: 1. No nephrolithiasis or evidence of obstructive urolithiasis. S igned by: Dr. Harsh Shi MD on 12/06/2019 4:20 AM Dictated By: HARSH LEVINE MD 9 Transcri bed By: IRENA on 12/06/19419 COPY TO: MARGA DAVIDSON DO Blood leukocytes automated count (number/volume)2019-12-06 03:01:00* Test Item Value Reference Range Interpretation Comments White Blood Count (test code = 6690-2) 8.85 4.8-10.8 [facility] count (number/volume)2019-12-06 03:01:00* Test Item Value Reference Range Interpretation Comments Red Blood Count (test code = 789-8) 4.28 3.6-5.1 [facility]Blood hemoglobin measurement (moles/volume)2019-12-06 03:01:00* Test Item Value Reference Range Interpretation Comments Hemoglobin (test code = 51830-1) 8.7 12.0-16.0 [facility] HospitalAutomated blood hematocrit (volume fraction)2019-12-06 03:01:00* Test Item Value Reference Range Interpretation Comments Hematocrit (test code = 4544-3) 29.9 34.2-44.1 [facility] HospitalAutomated erythrocyte mean corpuscular goewnl3741-39-39 03:01:00* Test Item Value Reference Range Interpretation Comments Mean Corpuscular Volume (test code = 787-2) 69.9 81-99 [facility] HospitalAutomated erythrocyte mean corpuscular hemoglobin (mass per erythrocyte)2019-12-06 03:01:00* Test Item Value Reference Range Interpretation Comments Mean Corpuscular Hemoglobin (test code = 785-6) 20.3 28-32 [facility] HospitalAutomated erythrocyte mean corpuscular hemoglobin concentration measurement (mass/volume)2019-12-06 03:01:00* Test Item Value Reference Range Interpretation Comments Mean Corpuscular Hemoglobin Concent (test code = 786-4) 29.1 31-35 [facility] HospitalRDW FnyCh-Uwt3557-85-26 03:01:00* Test Item Value Reference Range Interpretation Comments Red Cell Distribution Width (test code = 74225-6) 23.8 11.7 -14.4 [facility] HospitalAutomated blood platelet count (count/volume)2019-12-06 03:01:00* Test Item Value Reference Range Interpretation Comments Platelet Count (test code = 777-3) 465 140-360 [facility] HospitalAutomated blood segmented neutrophil count as percentage of total atnootljib1968-75-98 03:01:00* Test Item Value Reference Range Interpretation Comments Neutrophils (%) (Auto) (test code = 72739-8) 62.4 38.7-80.0 [facility] lymphocyte count as percentage ot total fizfwiovyf5720-50-67 03:01:00* Test Item Value Reference Range Interpretation Comments Lymphocytes (%) (Auto) (test code = 736-9) 31.5 18.0-39.1 [facility] HospitalAutomated blood monocyte count as percentage of total cuopfgcgtx1436-80-24 03:01:00* Test Item Value Reference Range Interpretation Comments Monocytes (%) (Auto) (test code = 5905-5) 4.6 4.4-11.3 [facility] HospitalAutomated blood eosinophil count as percentage of total vvjmxzfjgc7720-05-15 03:01:00* Test Item Value Reference Range Interpretation Comments Eosinophils (%) (Auto) (test code = 713-8) 0.6 0.0-6.0 [facility] HospitalAutomated blood basophil count as percentage of total ilskxivomf4017-31-79 03:01:00* Test Item Value Reference Range Interpretation Comments Basophils (%) (Auto) (test code = 706-2) 0.7 0.0-1.0 [facility] HospitalFluoroscopic procedure less than one hour dmfakoyc4529-91-96 03:01:00* Test Item Value Reference Range Interpretation Comments IM GRANULOCYTES % (test code = IM GRANULOCYTES %) 0.2 0.0- 1.0 [facility] HospitalAutomated blood neutrophil count 2019-12-06 03:01:00* Test Item Value Reference Range Interpretation Comments Neutrophils # (Auto) (test code = 751-8) 5.5 2.1-6.9 [facility] HospitalBlood lymphocytes count (number/volume) 2019-12-06 03:01:00* Test Item Value Reference Range Interpretation Comments Lymphocytes # (Auto) (test code = 73282-6) 2.8 1.0-3.2 [facility] HospitalBlood monocytes automated count (number/volume)2019-12-06 03:01:00* Test Item Value Reference Range Interpretation Comments Monocytes # (Auto) (test code = 742-7) 0.4 0.2-0.8 [facility] HospitalAutomated blood eosinophil count 2019-12-06 03:01:00* Test Item Value Reference Range Interpretation Comments Eosinophils # (Auto) (test code = 711-2) 0.1 0.0-0.4 [facility] HospitalAutomated blood basophil count (count/volume)2019-12-06 03:01:00* Test Item Value Reference Range Interpretation Comments Basophils # (Auto) (test code = 704-7) 0.1 0.0-0.1 [facility] HospitalFluoroscopic procedure less than one hour oqwrdyeg8040-69-30 03:01:00* Test Item Value Reference Range Interpretation Comments Absolute Immature Granulocyte (auto (donna t code = Absolute Immature Granulocyte (auto) 0.02 0-0.1 [facility]ererum or plasma sodium measurement (moles/volume)2019-12-06 03:01:00* Test Item Value Reference Range Interpretation Comments Sodium Level (test code = 2951-2) 140 136-145 [facility] Centererum or plasma potassium measurement (moles/volume)2019-12-06 03:01:00* Test Item Value Reference Range Interpretation Comments Potassium Level (test code = 2823-3) 3.1 3.5-5.1 [facility]ererum or plasma chloride measurement (moles/volume)2019-12-06 03:01:00* Test Item Value Reference Range Interpretation Comments Chloride Level (test code = 2075-0) 106 98-107 [facility]ererum or plasma carbon dioxide, total measurement (moles/volume)2019-12-06 03:01:00* Test Item Value Reference Range Interpretation Comments Carbon Dioxide Level (test code = 2028-9) 24 22-29 [facility]ererum or plasma anion lzx1717-46-54 03:01:00* Test Item Value Reference Range Interpretation Comments Anion Gap (test code = 64109-2) 13.1 8-16 [facility]ererum or plasma urea nitrogen measurement (mass/volume)2019-12-06 03:01:00* Test Item Value Reference Range Interpretation Comments Blood Urea Nitrogen (test code = 3094-0) 7 7-26 [facility]ererum or plasma creatinine measurement (mass/volume)2019-12-06 03:01:00* Test Item Value Reference Range Interpretation Comments Creatinine (test code = 2160-0) 0.89 0.57-1.11 [facility]ererum or plasma urea nitrogen/creatinine mass pdtpd9692-38-06 03:01:00* Test Item Value Reference Range Interpretation Comments BUN/Creatinine Ratio (test code = 3097-3) 8 6-25 [facility] HospitalEstimated glomerular filtration rate (GFR) hpklwngfbfxoe8905-49-08 03:01:00* Test Item Value Reference Range Interpretation Comments Estimat Glomerular Filtration Rate (test code = 695232683) > 60 >60 Ranges were taken from the National Kidney Disease Education Program and the [facility] Foundation literature.Reference ranges:60 or greater: Atujse42-06 ( for 3 consecutive months): Chronic kidney disease 15 or less: Kidney failureTexas Children's HospitalGlucose tzawyuazfim3932-36-85 03:01:00* Test Item Value Reference Range Interpretation Comments Glucose Level (test code = YXN7922) 128 74-118 [facility]ererum or plasma calcium measurement (mass/volume)2019-12-06 03:01:00* Test Item Value Reference Range Interpretation Comments Calcium Level (test code = 23787-5) 9.7 8.4-10.2 [facility]ererum or plasma total bilirubin measurement (mass/volume)2019-12-06 03:01:00* Test Item Value Reference Range Interpretation Comments Total Bilirubin (test code = 1975-2) 0.3 0.2-1.2 [facility] HospitalFluoroscopic procedure less than one hour yelgqaui7715-75-34 03:01:00* Test Item Value Reference Range Interpretation Comments Aspartate Amino Transf (AST/SGOT) (test code = Aspartate Amino Transf (AST/SGOT)) 12 5-34 [facility]ererum or plasma alanine aminotransferase measurement (enzymatic activity/volume)2019-12-06 03:01:00* Test Item Value Reference Range Interpretation Comments Alanine Aminotransferase (ALT/SGPT) (test code = 1742-6) 10 0-55 [facility]ererum or plasma protein measurement (mass/volume)2019-12-06 03:01:00* Test Item Value Reference Range Interpretation Comments Total Protein (test code = 2885-2) 7.5 6.5-8.1 [facility]ererum or plasma albumin measurement (mass/volume)2019-12-06 03:01:00* Test Item Value Reference Range Interpretation Comments Albumin (test code = 1751-7) 4.2 3.5-5.0 [facility] HospitalPlasma globulin measurement (mass/volume) 2019-12-06 03:01:00* Test Item Value Reference Range Interpretation Comments Globulin (test code = 92316-9) 3.3 2.3-3.5 [facility]ererum or plasma albumin/globulin mass kdwav8227-80-59 03:01:00* Test Item Value Reference Range Interpretation Comments Albumin/Globulin Ratio (test code = 1759-0) 1.3 0.8-2.0 [facility]ererum or plasma alkaline phosphatase measurement (enzymatic activity/volume)2019-12-06 03:01:00* Test Item Value Reference Range Interpretation Comments Alkaline Phosphatase (test code = 6768-6) 73 40-150 [facility] HospitalUrine color xiyjvnukulcra9328-42-56 02:18:00* Test Item Value Reference Range Interpretation Comments Urine Color (test code = 5778-6) YELLOW YELLOW [facility] HospitalUrine tifybed5459-22-26 02:18:00* Test Item Value Reference Range Interpretation Comments Urine Clarity (test code = 55819-7) CLEAR CLEAR [facility] Centerpecific gravity of Urine by Test strip 2019-12-06 02:18:00* Test Item Value Reference Range Interpretation Comments Urine Specific [place] (test code = 5811-5) 1.030 1.010-1.02 5 [facility] HospitalUrine pH measurement by automated test qccbr9087-29-43 02:18:00* Test Item Value Reference Range Interpretation Comments Urine pH (test code = 35664-5) 6 5-7 [facility] HospitalUrine leukocyte esterase detection by uubbbaql1447-20-92 02:18:00* Test Item Value Reference Range Interpretation Comments Urine Leukocyte Esterase (test code = 5799-2) NEGATIVE NEGATIVE [facility] HospitalUrine nitrite ipytvwrlk6164-90-94 02:18:00* Test Item Value Reference Range Interpretation Comments Urine Nitrite (test code = 50787-4) NEGATIVE NEGATIVE [facility] HospitalUrine protein measurement by test strip (mass/volume)2019-12-06 02:18:00* Test Item Value Reference Range Interpretation Comments Urine Protein (test code = 5804-0) TRACE NEGATIVE [facility] HospitalUrine glucose lxcbxfemd0098-34-11 02:18:00* Test Item Value Reference Range Interpretation Comments Urine Glucose (UA) (test code = 2349-9) NEGATIVE NEGATIVE [facility] HospitalUrine ketones detection by automated test alcpv3074-73-79 02:18:00* Test Item Value Reference Range Interpretation Comments Urine Ketones (test code = 10141-2) TRACE NEGATIVE [facility] HospitalUrine opiates screening budq6843-91-78 02:18:00* Test Item Value Reference Range Interpretation Comments Urine Opiates Screen (test code = 07230-2) NEGATIVE NEGATIVE ALL TESTS PERFORMED MANUALLY ON [employer] TOX/SEE TESTTexas Children's HospitalBarbiturates screen, jvrcx7610-97-40 02:18:00* Test Item Value Reference Range Interpretation Comments Urine Barbiturates Screen (test code = 681040727) NEGATIVE NEGA TIVE [facility] HospitalUrine phencyclidine detection by screening mqyont3560-72-92 02:18:00* Test Item Value Reference Range Interpretation Comments Urine Phencyclidine Screen (test code = 85356-0) NEGATIVE NEGAT ESTELA [facility] HospitalUrine amphetamines detection by screen method > 1000 ng/rV0665-18-35 02:18:00* Test Item Value Reference Range Interpretation Comments Urine Amphetamines Screen (test code = 46091-1) NEGATIVE NEGATI VE [facility] HospitalFluoroscopic procedure less than one hour epvcwspi6915-91-63 02:18:00* Test Item Value Reference Range Interpretation Comments Urine Methamphetamines Screen (test code = Urine Metha mphetamines Screen) NEGATIVE NEGATIVE [facility] HospitalUrine benzodiazepines detection by screening akpecx6412-28-00 02:18:00* Test Item Value Reference Range Interpretation Comments Urine Benzodiazepines Screen (test code = 81152-2) NEGATIVE NEG ATIVE [facility] HospitalUrine cocaine measurement (mass/volume) 2019-12-06 02:18:00* Test Item Value Reference Range Interpretation Comments Urine Cocaine Screen (test code = 3398-5) NEGATIVE NEGATIVE [facility] HospitalUrine cannabinoids detection by screening pqcaia2484-78-23 02:18:00* Test Item Value Reference Range Interpretation Comments Urine Cannabinoids Screen (test code = 17937-2) NEGATIVE NEGATI VE THESE RESULTS ARE FOR MEDICAL TREATMENT ONLYTHIS REPORT CONTAINS UNCONFIR MED SCREENING RESULTS*POSITIVE RESULTS WILL BE CONFIRMED BY REFERENCE LAB UPON R EQUEST CUT-OFFDRUG CLASS CONCENTRATION ng/mLAmphetamines 1000Methamphetamines 1000Cocaine 300Opiate 300Phencyc lidine 25Cannabinoid 50Barbiturates 300Benzodiazepine 300Methadone 300[facility] CenterU[facility] methadone gsybxb2225-17-14 02:18:00* Test Item Value Reference Range Interpretation Comments Urine Methadone Screen (test code = 01380-9) NEGATIVE NEGATIVE THESE RESULTS ARE FOR MEDICAL TREATMENT ONLYTHIS REPORT CONTAINS UNCONFIR MED SCREENING RESULTS*POSITIVE RESULTS WILL BE CONFIRMED BY REFERENCE LAB UPON R EQUEST CUT-OFFDRUG CLASS CONCENTRATION ng/mLAmphetamines 1000Methamphetamines 1000Cocaine Metabolite 300Opiate 300Phencyc lidine 25Cannabinoid 50Barbiturates 300Benzodiazepine 300Methadone 300[facility] CenterUrine urobilinogen measurement by test strip (mass/volume)2019-12-06 02:18:00* Test Item Value Reference Range Interpretation Comments Urine Urobilinogen (test code = 68078-7) 1 0.2-1 [facility] HospitalUrine total bilirubin measurement (mass/volume)2019-12-06 02:18:00* Test Item Value Reference Range Interpretation Comments Urine Bilirubin (test code = 1978-6) NEGATIVE NEGATIVE [facility] HospitalUrine erythrocytes focgpnegg2988-49-00 02:18:00* Test Item Value Reference Range Interpretation Comments Urine Blood (test code = 72103-4) SMALL NEGATIVE [facility] HospitalAutomated urine sediment leukocyte count by microscopy (number/high power field)2019-12-06 02:18:00* Test Item Value Reference Range Interpretation Comments Urine WBC (test code = 5821-4) 6-10 0-5 [facility] HospitalErythrocytes detection in urine sediment by light ikisxouptp5348-82-19 02:18:00* Test Item Value Reference Range Interpretation Comments Urine RBC (test code = 22371-6) 6-10 0-5 [facility] HospitalBacteria detection in urine sediment by light gcnbrkcmeb5480-10-51 02:18:00* Test Item Value Reference Range Interpretation Comments Urine Bacteria (test code = 53441-4) MODERATE NONE [facility] HospitalEpithelial cells detection in urine sediment by light vxyijmeuwf6592-26-62 02:18:00* Test Item Value Reference Range Interpretation Comments Urine Epithelial Cells (test code = 53387-2) FEW NONE [facility] HospitalMucus detection in urine sediment by light lpnjloyejh4903-73-67 02:18:00* Test Item Value Reference Range Interpretation Comments Urine Mucus (test code = 8247-9) MODERATE RARE [facility] HospitalUrine human chorionic gonadotropin (hCG) ohgdaccgk7159-13-91 02:18:00* Test Item Value Reference Range Interpretation Comments Urine Test (test code = 2106-3) NEGATIVE NEGATIVE [facility] HospitalC REACTIVE IJRALFQ9374-28-14 23:34:00* Test Item Value Reference Range Interpretation Comments C REACTIVE PROTEIN (test code = CRP) <0.29 mg/dL 0-0.3 N HIV 1 2 COMBO AG/AB [id number] 23:34:00* Test Item Value Reference Range Interpretation Comments HIV 1 2 COMBO AG/AB SCREEN (test code = [id number]) AB/AG NO N REACTIVE NONREACTIVE NONREACTIVE HIV P24 ANTI GEN NONREACTIVE NONREACTIVE HIV 1&2 ANTIBODY NONREACTIVE THE HIV-1 P24 TEST HELPS DISTINGUISH ACUTE HIV-1INFECTIONFROM ESTABLISHED HIV-1 INFECTION WHEN THE SPECIMEN ISPOSITIVE FOR HIV-1 P24 ANTIGEN. HIV-1 P24 ANTIGEN IS HIGHEST IN THE FIRST FEW WEEKS AFTERINFECTION TSH REFLEX TO [id number] 22:38:00* Test Item Value Reference Range Interpretation Comments TSH REFLEX TO FT4 (test code = TSHREFLEX) 0.5 0.4-5.5 N C REACTIVE [id number] 22:29:00* Test Item Value Reference Range Interpretation Comments C REACTIVE PROTEIN (test code = CRP) <0.29 mg/dL 0-0.3 N HIV 1 2 COMBO AG/AB [id number] 22:29:00* Test Item Value Reference Range Interpretation Comments HIV 1 2 COMBO AG/AB SCREEN (test code = [id number]) NO NREACTIVE BASIC METABOLIC [id number] 22:29:00* Test Item Value Reference Range Interpretation Comments SODIUM (test code = NA) 139 mmol/L 136-145 N POTASSIUM (test code = K) 3.4 mmol/L 3.5-5.1 L CHLORIDE (test code = CL) 107.0 mmol/L 98-107 N CARBON DIOXIDE (test code = CO2) 25.0 mmol/L 21-32 N ANION GAP (test code = GAP) 10.4 10-20 N GLUCOSE (test code = GLU) 81 mg/dL 74-106 N BLOOD UREA NITROGEN (test code = BUN) 7 mg/dL 7-18 N GLOMERULAR FILTRATION RATE (test code = GFR) > 60 mL/min >=60 Estimated GFR by using Modified MDRD formula.Chronic kidney disease is defined as either kidney damageor GFR <60 mL/min/1.73 m2 for >3 months. CREATININE (test code = CREAT) 0.90 mg/dL 0.55-1.02 N Note change in reference range due to change in reagent. BUN/CREATININE RATIO (test code = BUN/CREA) 8.2 10-20 L CALCIUM (test code = CA) 8.9 mg/dL 8.5-10.1 N HEPATIC FUNCTION [id number] 22:29:00* Test Item Value Reference Range Interpretation Comments TOTAL PROTEIN (test code = PROT) 7.1 gram/dL 6.4-8.2 N ALBUMIN (test code = ALB) 3.6 g/dL 3.4-5.0 N GLOBULIN (test code = GLOB) 3.5 gram/dL 2.7-4.2 N ALBUMIN/GLOBULIN RATIO (test code = A/G) 1.0 0.75-1.50 N BILIRUBIN TOTAL (test code = BILT) 0.40 mg/dL 0.0-1.0 N BILIRUBIN DIRECT (test code = BILD) 0.10 mg/dL 0.0-0.20 N SGOT/AST (test code = AST) 12 IUnit/L 15-37 L SGPT/ALT (test code = ALT) 13 IUnit/L 12-78 N ALKALINE PHOSPHATASE TOTAL (test code = ALKP) 79 IUnit/L 45-117 N Note change in reference range due to change in reagent. [id number] 22:29:00* Test Item Value Reference Range Interpretation Comments LIPASE (test code = LIP) 102 U/L 73.0-393.0 N HCG SERUM [id number] 22:29:00* Test Item Value Reference Range Interpretation Comments HCG SERUM QUAL (test code = HCGQL) NEGATIVE NEGATIVE This HCGQL test is NOT applicable for MALE patients.Check with nurse about probable order error.If Tumor Marker Test needed, nurse should order test "HCGTU"(Test #[id number]) [id number] 22:29:00* Test Item Value Reference Range Interpretation Comments TROPONIN-I (test code = TROPI) <0.015 ng/mL 0-0.045 N BASIC METABOLIC [id number] 22:24:00* Test Item Value Reference Range Interpretation Comments SODIUM (test code = NA) mmol/L 136-145 POTASSIUM (test code = K) mmol/L 3.5-5.1 CHLORIDE (test code = CL) mmol/L 98-107 CARBON DIOXIDE (test code = CO2) mmol/L 21-32 ANION GAP (test code = GAP) 10-20 GLUCOSE (test code = GLU) mg/dL 74-106 BLOOD UREA NITROGEN (test code = BUN) mg/dL 7-18 GLOMERULAR FILTRATION RATE (test code = GFR) mL/min >=60 CREATININE (test code = CREAT) mg/dL 0.55-1.02 BUN/CREATININE RATIO (test code = BUN/CREA) 10-20 CALCIUM (test code = CA) mg/dL 8.5-10.1 HEPATIC FUNCTION [id number] 22:24:00* Test Item Value Reference Range Interpretation Comments TOTAL PROTEIN (test code = PROT) gram/dL 6.4-8.2 ALBUMIN (test code = ALB) g/dL 3.4-5.0 GLOBULIN (test code = GLOB) gram/dL 2.7-4.2 ALBUMIN/GLOBULIN RATIO (test code = A/G) 0.75-1.50 BILIRUBIN TOTAL (test code = BILT) mg/dL 0.0-1.0 BILIRUBIN DIRECT (test code = BILD) mg/dL 0.0-0.20 SGOT/AST (test code = AST) IUnit/L 15-37 SGPT/ALT (test code = ALT) IUnit/L 12-78 ALKALINE PHOSPHATASE TOTAL (test code = ALKP) IUnit/L 45-117 [id number] 22:24:00* Test Item Value Reference Range Interpretation Comments LIPASE (test code = LIP) U/L 73.0-393.0 HCG SERUM [id number] 22:24:00* Test Item Value Reference Range Interpretation Comments HCG SERUM QUAL (test code = HCGQL) NEGATIVE NEGATIVE This HCGQL test is NOT applicable for MALE patients.Check with nurse about probable order error.If Tumor Marker Test needed, nurse should order test "HCGTU"(Test #550.84188) [id number] 22:24:00* Test Item Value Reference Range Interpretation Comments TROPONIN-I (test code = TROPI) ng/mL 0-0.045 BASIC METABOLIC [id number] 22:24:00* Test Item Value Reference Range Interpretation Comments SODIUM (test code = NA) 139 mmol/L 136-145 N POTASSIUM (test code = K) 3.4 mmol/L 3.5-5.1 L CHLORIDE (test code = CL) 107.0 mmol/L 98-107 N CARBON DIOXIDE (test code = CO2) mmol/L 21-32 ANION GAP (test code = GAP) 10-20 GLUCOSE (test code = GLU) mg/dL 74-106 BLOOD UREA NITROGEN (test code = BUN) mg/dL 7-18 GLOMERULAR FILTRATION RATE (test code = GFR) mL/min >=60 CREATININE (test code = CREAT) mg/dL 0.55-1.02 BUN/CREATININE RATIO (test code = BUN/CREA) 10-20 CALCIUM (test code = CA) mg/dL 8.5-10.1 HEPATIC FUNCTION [id number] 22:24:00* Test Item Value Reference Range Interpretation Comments TOTAL PROTEIN (test code = PROT) gram/dL 6.4-8.2 ALBUMIN (test code = ALB) g/dL 3.4-5.0 GLOBULIN (test code = GLOB) gram/dL 2.7-4.2 ALBUMIN/GLOBULIN RATIO (test code = A/G) 0.75-1.50 BILIRUBIN TOTAL (test code = BILT) mg/dL 0.0-1.0 BILIRUBIN DIRECT (test code = BILD) mg/dL 0.0-0.20 SGOT/AST (test code = AST) IUnit/L 15-37 SGPT/ALT (test code = ALT) IUnit/L 12-78 ALKALINE PHOSPHATASE TOTAL (test code = ALKP) IUnit/L 45-117 [id number] 22:24:00* Test Item Value Reference Range Interpretation Comments LIPASE (test code = LIP) U/L 73.0-393.0 HCG SERUM [id number] 22:24:00* Test Item Value Reference Range Interpretation Comments HCG SERUM QUAL (test code = HCGQL) NEGATIVE NEGATIVE This HCGQL test is NOT applicable for MALE patients.Check with nurse about probable order error.If Tumor Marker Test needed, nurse should order test "HCGTU"(Test #550.49117) [id number] 22:24:00* Test Item Value Reference Range Interpretation Comments TROPONIN-I (test code = TROPI) ng/mL 0-0.045 CBC W/O [id number] 22:16:00* Test Item Value Reference Range Interpretation Comments WHITE BLOOD CELL (test code = WBC) 7.2 K/mm3 4.5-12.5 N RED BLOOD CELL (test code = RBC) 4.24 mill/mm3 3.7-5.2 N HEMOGLOBIN (test code = HGB) 8.9 gram/dL 11.5-15.5 L HEMATOCRIT (test code = HCT) 31.1 % 36.0-46.0 L MEAN CELL VOLUME (test code = MCV) 73.3 fL 80-98 L MEAN CELL HGB (test code = MCH) 21.0 picogram 27.0-33.0 L MEAN CELL HGB CONCETRATION (test code = MCHC) 28.6 gram/dL 33.0-36. 0 L RED CELL DISTRIBUTION WIDTH (test code = RDW) 24.3 % 11.6-16. 2 H PLATELET COUNT (test code = PLT) 432 K/mm3 150-450 N MEAN PLATELET VOLUME (test code = MPV) 9.8 fL 6.7-11.0 N Respiratory pathogen [id number] 12:50:05* Test Item Value Reference Range Interpretation Comments Adenovirus PCR (test code = 7092) Not Detected Specimen InformationSpecimen Source: NaresSpecimen Site: Right Coronavirus HKU1 PCR (test code = 7093) Not Detected Coronavirus NL63 PCR (test code = 7094) Not Detected Coronavirus 229E PCR (test code = 7095) Not Detected Coronavirus OC43 PCR (test code = 7096) Not Detected Human metapneumovirus PCR (test code = 7097) Not Detected Human rhinovirus/enterovirus PCR (test code = 7098) Not Detected Influenza A PCR (test code = 7099) Not Detected Influenza A/H1 PCR (test code = 7100) Not Reported Influenza A/H3 PCR (test code = 7102) Not Reported Influenza A/H1-2009 PCR (test code = 7101) Not Reported Influenza B PCR (test code = 7104) Not Detected Parainfluenza virus 1 PCR (test code = 7105) Not Detected Parainfluenza virus 2 PCR (test code = 7106) Not Detected Parainfluenza virus 3 PCR (test code = 7107) Not Detected Parainfluenza virus 4 PCR (test code = 7108) Not Detected Respiratory syncytial virus PCR (test code = 7109) Not Detected Bordetella pertussis PCR (test code = 2741816) Not Detected Bordetella parapertussis PCR (test code = 5341478) Not Detected Chlamydia pneumoniae PCR (test code = 3753) Not Detected Mycoplasma pneumoniae PCR (test code = 7110) Not Detected Influenza A no sub type PCR (test code = 7127) Not Reported [facility] MethodistInfluenza antigen test, reflex negative to [id number] 12:48:33* Test Item Value Reference Range Interpretation Comments Influenza antigen (test code = 56842-9) Negative for Influenza A/B antigen. Specimen InformationSpecimen Source: NaresSpecimen Site: Right [facility] MethodistXR Chest 2 [id number] 07:57:48Hm Interface, Radiology Results 12/02/2019 8:00 AM CDTEXAMINATION: XR CHEST 2 VWCLINICAL HISTORY: 29 years Female feverCOMPARISON: 10/06/2019IMPRESSION:1.The cardiomediastinal silhouette is normal.2.Lung volumes are decreased. There is no evidence pulmonary edema. There are no focal consolidations or effusions.3.Regional skeletal structures are within normal limits.[facility]-OQ11ZMKDOkqeqxk Hindu URINALYSIS [id number] 00:12:00* Test Item Value Reference Range Interpretation Comments UA COLOR (test code = COLU) LIGHT BROWN YELLOW A UA APPEARANCE (test code = APPU) HAZY CLEAR A UA GLUCOSE DIPSTICK (test code = DGLUU) norm mg/dL NEGATIVE UA BILIRUBIN DIPSTICK (test code = BILU) 1 mg/dL NEGATIVE A UA KETONE DIPSTICK (test code = KETU) 5 (Trace) mg/dL NEGATIVE A UA SPECIFIC GRAVITY (test code = SGU) 1.010 1.001-1.035 UA BLOOD DIPSTICK (test code = LEON) 250 (4+) Devan/uL NEGATIVE A UA PH DIPSTICK (test code = DMITRI) 7.0 5.0-8.0 UA PROTEIN DIPSTICK (test code = PROU) 100 (2+) mg/dL Neg-15 A UA UROBILINIOGEN DIPSTICK (test code = URO) 8 mg/dL 0.0-0.2 A UA NITRITE DIPSTICK (test code = ANIRUDH) NEGATIVE NEGATIVE UA LEUKOCYTE ESTERASE DIPSTICK (test code = LEUU) 100 Semaj/uL (1+) u L NEGATIVE A UA WBC (test code = WBCU) 3-5 per HPF 0-5 UA RBC (test code = RBCU) TNTC per HPF 0-5 A UA EPITHELIAL CELLS (test code = EPIU) Moderate (5-10/hpf) per HPF Few UA BACTERIA (test code = BACU) MODERATE per HPF NONE A Urine Source? Clean CatchDRUGS OF ABUSE SCREEN [id number] 00:12:00* Test Item Value Reference Range Interpretation Comments URN COCAINE (test code = COCAURN) NEGATIVE URN CANNABINOIDS (test code = CANNABURN) NEGATIVE URN AMPHETAMINE (test code = AMPHETURN) NEGATIVE URN BARBITURATE (test code = BARBITURN) NEGATIVE URN BENZODIAZEPINE (test code = BENZOURN) NEGATIVE URN OPIATES (test code = OPIATURN) NEGATIVE URN PHENCYCLIDINE (PCP) (test code = PHENCURN) NEGATIV E Urine Source? Clean CatchURINALYSIS [id number] 00:12:00* Test Item Value Reference Range Interpretation Comments UA COLOR (test code = COLU) LIGHT BROWN YELLOW A UA APPEARANCE (test code = APPU) HAZY CLEAR A UA GLUCOSE DIPSTICK (test code = DGLUU) norm mg/dL NEGATIVE UA BILIRUBIN DIPSTICK (test code = BILU) 1 mg/dL NEGATIVE A UA KETONE DIPSTICK (test code = KETU) 5 (Trace) mg/dL NEGATIVE A UA SPECIFIC GRAVITY (test code = SGU) 1.010 1.001-1.035 UA BLOOD DIPSTICK (test code = LEON) 250 (4+) Devan/uL NEGATIVE A UA PH DIPSTICK (test code = DMITRI) 7.0 5.0-8.0 UA PROTEIN DIPSTICK (test code = PROU) 100 (2+) mg/dL Neg-15 A UA UROBILINIOGEN DIPSTICK (test code = URO) 8 mg/dL 0.0-0.2 A UA NITRITE DIPSTICK (test code = ANIRUDH) NEGATIVE NEGATIVE UA LEUKOCYTE ESTERASE DIPSTICK (test code = LEUU) 100 Semaj/uL (1+) u L NEGATIVE A UA WBC (test code = WBCU) 3-5 per HPF 0-5 UA RBC (test code = RBCU) TNTC per HPF 0-5 A UA EPITHELIAL CELLS (test code = EPIU) Moderate (5-10/hpf) per HPF Few UA BACTERIA (test code = BACU) MODERATE per HPF NONE A Urine Source? Clean CatchDRUGS OF ABUSE SCREEN [id number] 00:12:00* Test Item Value Reference Range Interpretation Comments URN COCAINE (test code = COCAURN) NEGATIVE NEGATIVE URN CANNABINOIDS (test code = CANNABURN) NEGATIVE NEGATIVE URN AMPHETAMINE (test code = AMPHETURN) NEGATIVE NEGATIVE URN BARBITURATE (test code = BARBITURN) NEGATIVE NEGATIVE URN BENZODIAZEPINE (test code = BENZOURN) NEGATIVE NEGATIVE URN OPIATES (test code = OPIATURN) POSITIVE NEGATIVE A URN PHENCYCLIDINE (PCP) (test code = PHENCURN) NEGATIVE NEGATIV E Urine Source? Clean [id number] 23:14:00* Test Item Value Reference Range Interpretation Comments MAGNESIUM (test code = MAG) 2.1 mg/dL 1.6-2.3 N BASIC METABOLIC [id number] 23:00:00* Test Item Value Reference Range Interpretation Comments SODIUM (test code = NA) 141 mmol/L 135-148 N POTASSIUM (test code = K) 2.8 mmol/L 3.5-5.1 Re sults called to [id number] by V.LAB.CB1 11/29/19 2254Critical results verified and read back by Nurse? Y CHLORIDE (test code = CL) 104 mmol/L 101-109 N CARBON DIOXIDE (test code = CO2) 26.6 mmol/L 21-32 N ANION GAP (test code = GAP) 13 mmol/L 10-20 N GLUCOSE (test code = GLU) 86 mg/dL 74-106 N BLOOD UREA NITROGEN (test code = BUN) 6 mg/dL 3-21 N GLOMERULAR FILTRATION RATE (test code = GFR) > 60 mL/min >=60 Estimated GFR by using Modified MDRD formula.Chronic kidney disease is defined as either kidney damageor GFR <60 mL/min/1.73 m2 for >3 months. CREATININE (test code = CREAT) 0.89 mg/dL 0.55-1.3 N BUN/CREATININE RATIO (test code = BUN/CREA) 6.7 10-20 L CALCIUM (test code = CA) 9.0 mg/dL 8.4-10.2 N HEPATIC FUNCTION [id number] 23:00:00* Test Item Value Reference Range Interpretation Comments TOTAL PROTEIN (test code = PROT) 8.0 g/dL 6.5-8.4 N ALBUMIN (test code = ALB) 3.7 g/dL 3.4-4.8 N GLOBULIN (test code = GLOB) 4.3 G/DL 1-10 N ALBUMIN/GLOBULIN RATIO (test code = A/G) 0.9 RATIO 0.75-1.50 N BILIRUBIN TOTAL (test code = BILT) 0.60 mg/dL 0.0-1.0 N BILIRUBIN DIRECT (test code = BILD) 0.20 mg/dL 0.0-0.30 N SGOT/AST (test code = AST) 16 U/L 6-32 N SGPT/ALT (test code = ALT) 16 U/L 12-78 N N ote: Change in REFERENCE RANGE due to new reagent method. ALKALINE PHOSPHATASE TOTAL (test code = ALKP) 78 U/L 38-126 N [id number] 23:00:00* Test Item Value Reference Range Interpretation Comments LIPASE (test code = LIP) 129 U/L 128-270 N HCG SERUM [id number] 23:00:00* Test Item Value Reference Range Interpretation Comments HCG SERUM QUAL (test code = HCGQL) NEGATIVE NEGATIVE This HCGQL test is NOT applicable for MALE patients.Check with nurse about probable order error.If Tumor Marker Test needed, nurse should order test "HCGTU"(Test #550.90949) LACTIC [id number] 22:56:00* Test Item Value Reference Range Interpretation Comments LACTIC ACID (test code = LACT) 1.4 MMOL/L 0.4-1.9 N BASIC METABOLIC [id number] 22:54:00* Test Item Value Reference Range Interpretation Comments SODIUM (test code = NA) 141 mmol/L 135-148 N POTASSIUM (test code = K) 2.8 mmol/L 3.5-5.1 [facility] sults called to [id number] by V.LAB.[facility] 11/29/19 2254Critical results verified and read back by Nurse? Y CHLORIDE (test code = CL) 104 mmol/L 101-109 N CARBON DIOXIDE (test code = CO2) 26.6 mmol/L 21-32 N ANION GAP (test code = GAP) 13 mmol/L 10-20 N GLUCOSE (test code = GLU) 86 mg/dL 74-106 N BLOOD UREA NITROGEN (test code = BUN) 6 mg/dL 3-21 N GLOMERULAR FILTRATION RATE (test code = GFR) > 60 mL/min >=60 Estimated GFR by using Modified MDRD formula.Chronic kidney disease is defined as either kidney damageor GFR <60 mL/min/1.73 m2 for >3 months. CREATININE (test code = CREAT) 0.89 mg/dL 0.55-1.3 N BUN/CREATININE RATIO (test code = BUN/CREA) 6.7 10-20 L CALCIUM (test code = CA) 9.0 mg/dL 8.4-10.2 N HEPATIC FUNCTION [id number] 22:54:00* Test Item Value Reference Range Interpretation Comments TOTAL PROTEIN (test code = PROT) 8.0 g/dL 6.5-8.4 N ALBUMIN (test code = ALB) 3.7 g/dL 3.4-4.8 N GLOBULIN (test code = GLOB) 4.3 G/DL 1-10 N ALBUMIN/GLOBULIN RATIO (test code = A/G) 0.9 RATIO 0.75-1.50 N BILIRUBIN TOTAL (test code = BILT) 0.60 mg/dL 0.0-1.0 N BILIRUBIN DIRECT (test code = BILD) 0.20 mg/dL 0.0-0.30 N SGOT/AST (test code = AST) 16 U/L 6-32 N SGPT/ALT (test code = ALT) 16 U/L 12-78 N N ote: Change in REFERENCE RANGE due to new reagent method. ALKALINE PHOSPHATASE TOTAL (test code = ALKP) 78 U/L 38-126 N [id number] 22:54:00* Test Item Value Reference Range Interpretation Comments LIPASE (test code = LIP) 129 U/L 128-270 N HCG SERUM [id number] 22:54:00* Test Item Value Reference Range Interpretation Comments HCG SERUM QUAL (test code = HCGQL) NEGATIVE CBC W/O [id number] 22:38:00* Test Item Value Reference Range Interpretation Comments WHITE BLOOD CELL (test code = WBC) 10.2 K/mm3 4.5-12.5 N RED BLOOD CELL (test code = RBC) 4.42 mill/mm3 3.7-5.2 N HEMOGLOBIN (test code = HGB) 9.3 gram/dL 11.5-15.5 L HEMATOCRIT (test code = HCT) 31.2 % 36.0-46.0 L MEAN CELL VOLUME (test code = MCV) 70.6 fL 80-98 L MEAN CELL HGB (test code = MCH) 21.0 picogram 27.0-33.0 L MEAN CELL HGB CONCETRATION (test code = MCHC) 29.8 gram/dL 33.0-36. 0 L RED CELL DISTRIBUTION WIDTH (test code = RDW) 23.2 % 11.6-16. 2 H RED CELL DISTRIBUTION WIDTH SD (test code = RDW-SD) 57.6 fL 37 .0-51.0 H PLATELET COUNT (test code = PLT) 487 K/mm3 150-450 H MEAN PLATELET VOLUME (test code = MPV) 9.0 fL 6.7-11.0 N COVID-19 qualitative [id number] 13:48:14* Test Item Value Reference Range Interpretation Comments Interpretation (test code = 0115528) Negative results do not preclude 2019-nCoV infection and should not be used as the sole basis for treatment or other patient management decisions. Negative results must be combined with clinical observations, patient history, and epidemiological information. COVID-19 qualitative PCR result (test code = 41891-8) Not-Detect ed Not-Detected COVID-19 qualitative PCR (test code = 7070) See link below for P DF Lab Report [facility] NishantistPrepare RBC, 2 [id number] 06:34:00* Test Item Value Reference Range Interpretation Comments Product name (test code = 25) Red Blood Cells -1, Leukored Unit number (test code = 3806696) [id number] Product code (test code = 3092) [id number] Dispense status (test code = 24) Transfused Blood expiration date (test code = ) [id number] Blood type code (test code = 308) 600 Blood type (test code = 1314) A NEGATIVE Compatibility (test code = 6400) Compatible [facility] MethodistUrine drugs of abuse [id number] 05:29:43* Test Item Value Reference Range Interpretation Comments Amphetamine screen, urine (test code = 3349-8) Negative Barbiturate screen, urine (test code = 3377-9) Negative Benzodiazepine screen, urine (test code = 3390-2) Negative Cocaine screen, urine (test code = 3397-7) Negative Methadone metabolite (EDDP), urine (test code = 35038-9) Negative Opiates screen, urine (test code = 3879-4) Positive A Oxycodone screen, urine (test code = 75575-4) Negative Phencyclidine screen, urine (test code = 3936-2) Negative Cannabinoid screen, urine (test code = 3427-2) Negative Drug screen minimum concentration of detectabilityAmphetamines 1000 ng/mLBarbiturates 200 ng/mLBenzodiazepines 300 ng/mLCocaine 300 ng/mLMethadone 300 ng/mLOpiates 300 ng/mLOxycodone 300 ng/mLPhencyclidine 25 ng/mLCannabinoids 50 ng/mLTricyclics 1000 ng/mLResults are from screening tests and should only be used for medical evaluation. Drug testing for legal purposes requires definitive (or confirmatory) testing methods, which are available upon request. Contact the laboratory if definitive testing is required. Lab Interpretation (test code = 01252-0) Abnormal R[facility] MethodisthCG qualitative, serum [id number] 03:34:12* Test Item Value Reference Range Interpretation Comments hCG qualitative, serum (test code = 2118-8) Negative The manufacturers stated sensitivity of HcG test for serum is >/= 10 mIU/ml and urine is >/= 20mIU/ml. Seth MethodistType and [id number] 03:23:00* Test Item Value Reference Range Interpretation Comments ABO grouping (test code = 883-9) A Rh type (test code = 59094-9) NEG Antibody screen (gel) (test code = 890-4) NEG [facility] MethodistManual [id number] 01:32:22* Test Item Value Reference Range Interpretation Comments Manual differential (test code = 47916-6) PERFORMED Neutrophils (test code = 55413-1) 50.0 % 36-66 Lymphocytes (test code = 17777-3) 45.0 % 24-44 H Monocytes (test code = 44046-0) 3.0 % 0-6 Eosinophils (test code = 54166-9) 2.0 % 0-6 Basophils (test code = 36725-4) 0.0 % 0-1.2 Metamyelocytes (test code = 740-1) 0 % 0-1 Promyelocytes (test code = 783-1) 0 % 0-1 Platelet slide review (test code = 41062-4) [place] adequate Anisocytosis (test code = 702-1) Moderate Polychromasia (test code = 85508-2) FEW Schistocytes (test code = 800-3) Occasional Enlarged platelets (test code = 83155-6) FEW Smudge cells (test code = 7798-2) FEW Lab Interpretation (test code = 00829-0) Abnormal Rolo MethodistUS Pelvic [id number] 00:43:57Hm Interface, Radiology Results 11/28/2019 12:47 AM CDTEXAM: US PELVIC TRANSABDOMINAL, US PELVIC TRANSVAGINALCLINICAL HISTORY: abnormal uterine ble eding anemiaTECHNIQUE:Transabdominal and endovaginal sonographic images of the pelvis were obtained. Grayscale, color Doppler, and spectral waveform analysis o f the ovarian vessels was performed.COMPARISON: None.FINDINGS:The uterus measur es 8.1 x 4.6 x 4.8 cm. The endometrial stripe measures 0.9 cm. Of note, there is complex, heterogenous echogenic material within the endometrial canal which may reflect blood products; correlate findings with menstrual status. No uterine ma sses. Cervix is normal.The right ovary measures 4.4 x 2.4 x 3.1 cm. Normal Doppl er flow was present.The left ovary measures 3.6 x 1.8 x 1.9 cm. Normal Doppler f low was present.No adnexal masses.There is no visualized free fluid in the pelvi c cul-de-sac.IMPRESSION:1.Mild amount of complex, heterogenous echogenic materia l within the endometrial canal which may reflect blood products; correlate findi ngs with menstrual status.2.Ovaries are unremarkable in appearance.1M2RAD_PS01 [facility] MethodistUS Pelvic [id number] 00:43:57Hm Interface, Radiology Results 11/28/2019 12:47 AM CDTEXAM: US PELVIC TRANSABDOMINAL, US PELVIC TRANSVAGINALCLINICAL HISTORY: abnormal uterine ble edin anemiaTECHNIQUE:Transabdominal and endovaginal sonographic images of the pelvis were obtained. Grayscale, color Doppler, and spectral waveform analysis o f the ovarian vessels was performed.COMPARISON: None.FINDINGS:The uterus measur es 8.1 x 4.6 x 4.8 cm. The endometrial stripe measures 0.9 cm. Of note, there is complex, heterogenous echogenic material within the endometrial canal which may reflect blood products; correlate findings with menstrual status. No uterine ma sses. Cervix is normal.The right ovary measures 4.4 x 2.4 x 3.1 cm. Normal Doppl er flow was present.The left ovary measures 3.6 x 1.8 x 1.9 cm. Normal Doppler f low was present.No adnexal masses.There is no visualized free fluid in the pelvi c cul-de-sac.IMPRESSION:1.Mild amount of complex, heterogenous echogenic materia l within the endometrial canal which may reflect blood products; correlate findi ngs with menstrual status.2.Ovaries are unremarkable in appearance.1M2RAD_PS01 Rolo MethodistT4, [id number] 23:42:44* Test Item Value Reference Range Interpretation Comments T4, free (test code = 3024-7) 1.09 ng/dL 0.9-1.7 [facility] MethodistThyroid stimulating [id number] 23:42:44* Test Item Value Reference Range Interpretation Comments TSH (test code = 3016-3) 0.76 0.27- 4.20 uIU/mL Seth MethodistMagnesium [id number] 23:31:28* Test Item Value Reference Range Interpretation Comments Magnesium (test code = 43229-6) 1.90 mg/dL 1.6-2.6 [facility] MethodistHemoglobin [id number] 23:28:35* Test Item Value Reference Range Interpretation Comments Hemoglobin A1C (test code = 81670-2) 5.7 % 4-5.6 H HbA1c cutoffs for diagnosing diabetes:4.0% - 5.6% = normal5.7% - 6.4% = increased risk for diabetes (prediabetes)9>=6.5% = otezfgcv2Wbgpf for glycemic control (ADA 2016)< 7.0% Target for non adults with diabetes. More or less stringent targets may be appropriate for individual patients. <7.5% Target for Children and adolescents with type 1 diabetes. Lab Interpretation (test code = 36264-3) Abnormal [facility] MethodistPartial thromboplastin time, ntlqkprlf1075-08-00 23:25:15* Test Item Value Reference Range Interpretation Comments PTT (test code = 3173-2) 24.7 23.0- 36.0 sec P TT therapeutic range for unfractionated heparin is61.0-112.0 seconds which corresponds to Anti-Xa0.3-0.7 U/ml. [facility] MethodistProthrombin time with [id number] 23:24:19* Test Item Value Reference Range Interpretation Comments Prothrombin time (test code = 5902-2) 14.3 11.5- 14.5 sec INR (test code = 75183-3) 1.11 Fo r patients on anticoagulant therapy, reference ranges below:Indication: INR ValueTreatment of Venous Thrombosis, 2.0-3.0pulmonary emboli, or prophylaxisof a venous thrombosis, or systemic emboli.High dose, high risk patients 3.0-4.5with mechanical valves.NOTE: INR values over 3.0 are sometimes associated withgastrointestinal hemorrhage, especially values over 4.0. Seth NishantistLipase jsrkg1481-21-47 03:01:07* Test Item Value Reference Range Interpretation Comments Lipase (test code = 3040-3) 22 U/L 13-60 [facility] MethodistInsert peripheral [id number] 01:29:21Matthias Galvez NP 10/06/2019 4:35 AMInsert peripheral IVDate/Time: 10/06/2019 2:54 AMPerformed by: Matthias Galvez NPAuthorized by: Harry Gomez MD Consent: Verbal consent obtained.Risks and benefits: risks, benefits and alternatives were discussedConsent given by: patientRequired items: required blood products, implants, devices, and special equipment availablePatient identity confirmed: verbally with patient and arm bandLocal anesthesia used: no Anesthesia:Local anesthesia used: no Sedation:Patient sedated: no Comments: 20-gauge IV access obtained to the left upper arm utilizing ultrasound guidance. Patient tolerated procedure well. IV with good blood return. Flushes easily. Labs drawn at bedside and given to RN. Rolo AndreaXR Chest 1 Vw [id number] 01:22:18Hm Interface, Radiology Results 10/06/2019 1:25 AM CDTEXAMINATION: XR CHEST 1 VW PORTABLECLINICAL HISTORY: SOBCOMPARISON: 02/24/2015.IMPRESSION:Low lung volumes. Mild bibasilar volume loss or infiltrates. Imaging features can be seen with COVID-19 pneumonia, though are nonspecific and can occur with a variety of infectious and noninfectious processes. Consider isolation and appropriate laboratory testing.No pleural effusion or pneumothorax. The cardiomediastinal silhouette is normal.No acute osseous abnormalities.[facility]-[id number] MethodistCT Abdomen Pelvis W Ftomllzw0131-32-61 06:46:51Hm Interface, Radiology Results 09/29/2019 6:49 AM CDTEXAMINATION: CT ABDOMEN PELVIS W CONTRASTCLINICAL HISTORY: suprapubic pain and dysfunctional uterine bleedingTECHNIQUE: Multiple axial images of the abdomen and pelvis were obtained following intravenous administration of iodinated contrast. CT imaging was performed with iterative reconstruction technique and/or automated exposure control to reduce radiation dose.COMPARISON: April 29, 2019FINDINGS:LUNG BASES:NormalABDOMEN:Liver: The liver is normal. No focal mass.Gallbladder: The gallbladder is normal.Spleen: The spleen is not enlarged.Pancreas: The pancreas is unremarkable.Adrenal Glands: The adrenal glands are unremarkable.Kidneys: The kidneys are unremarkable. No mass, hydronephrosis or calculi.Vascular: The abdominal aorta is nonaneurysmal.Nodes: No enlarged retroperitoneal or mesenteric lympha denopathy.Bowel: No bowel obstruction or acute inflammatory changes. The appendi x is normal.Ascites/fluid collections: No pneumoperitoneum, ascites, or organize d fluid collections.PELVIS:Redemonstration of bilateral adnexal cysts, including a fat-containing dermoid cyst on the left. MUSCULOSKELETAL: Subtle lumbar levoc urvature, possibly positional.IMPRESSION:1.No acute abdominopelvic inflammatory process.2.Bilateral benign adnexal cysts, including a fat-containing dermoid cys t on the left.[facility]-[id number] Hindu- CT ABD PELVIS W/O [id number] 05:51:00 Name: DILSHAD PRETTY [facility] : 1990 Age/S: 29 / F [address] [place] [address] Unit #: [id number] Loc: [place] [address] Phys: Moises Lara NP Acct: [id number] Dis Date: Status: REG ER PHONE #: [phone] Exam Date: 07/30/2019 0532 FAX #: [phone] Reason: Bilat flank and upper abd pain EXAMS: CPT CODE: [id number] CT ABD PELVIS W/O CONT 01048 EXAM: CT, CT ABDOMEN AND PELVIS W/O CONTRAST: 07/30/2019, 0530 hours Clinical Indication: Bilateral flank and upper abdominal pain. Nausea. Vomiting. Comparison: Ultrasound dated 05/31/2017. CT scan dated 04/07/2016 TECHNIQUE: Noncontrast helical imaging was performed without IV contrast from diaphragm to the symphysis pubis regions. Multiplanar coronal and sagittal reformations are obtained. CT imaging was performed with exposure control parameters to reduce radiation dose. All CT scans at this location are performed using dose optimization techniques as appropriate to perform exam including the following: * Automated exposure control * Adjustment of the mA and /or kV according to patient size (this includes techniques or standardized protocols for targeted exams where dose is matched to indication/reason for exam; extremities or head) * Use of iterative reconstruction technique Oral contrast: None. CT Radiation Dose: DLP = 753.88 mGy-cm FINDINGS: This examination is limited for the evaluation of solid organs and vascular structures due to withheld intravenous contrast. LOWER CHEST: The visualized lung bases are clear. NON-CONTRAST ENHANCED SOLID ORGANS: LIVER: Unremarkable. GALLBLADDER: Unremarkable. INTRAHEPATIC BILE DUCT AND EXTRAHEPATIC BILE DUCT: Unremarkable. PANCREAS: Unremarkable. SPLEEN: Unremarkable. ADRENALS: Unremarkable. KIDNEYS: No urinary calculi, hydronephrosis or perinephric stranding. The renal contours are normal. NON-CONTRAST OPACIFIED STOMACH AND BOWEL: STOMACH: Unremarkable. BOWEL: The non-contrast opacified small bowel loops in the abdomen and PAGE 1 Signed Report (CONTINUED) Name: DILSHAD PRETTY [facility] : 1990 Age/S: 29 / F [address] [place] [address] Blvd Unit #: [id number] Loc: [place] [address] Phys: Moises Lara NP Acct: [id number] Dis Date: Status: REG ER PHONE #: [phone] Exam Date: 07/30/2019 0532 FAX #: [phone] Reason: Bilat flank and upper abd pain EXAMS: CPT CODE: [id number] ABD PELVIS W/O CONT 98127 < Continued> pelvis appear unremarkable. Moderately large fecal load in the colon. Sigmoid colon diverticulosis without diverticulitis. APPENDIX: Unremarkable The lack of orally administered contrast material limits bowel assessment. PERITONEUM AND RETROPERITONEUM: No ascites or free air. No other fluid collection. There is no aortic aneurysm seen. LYMPH NODES: Unremarkable. PELVIS: No pelvic mass or adenopathy. Uterus is anteflexed. Ovaries are not well seen. BLADDER: Nondistended. OSSEOUS STRUCTURES: No acute abnormality seen. SOFT TISSUES: Fat- containing small umbilical hernia.. IMPRESSION: 1. No acute abdominal or pelvic abnormality. 2. Moderately large fecal load in the colon with colonic diverticulosis. 3. No renal stone or hydronephrosis seen bilaterally. 4. Small fat-containing uncomplicated umbilical hernia. SL: JSYED-H at 0551 Reported and signed by: Noe De La Paz M.D. CC: Mathew Garcia MD; Moises Lara NP Technologist:Laci Brown, RT(R)(CT) CTDI: DLP: Trnscb Date/Time: 07/30/2019 (0551) [email or web address] Orig Print D/T: S: 07/30/2019 (0302) PAGE 2 Signed Report UA RFLX MICR CULT IF [id number] 04:56:00* Test Item Value Reference Range Interpretation Comments UA COLOR (test code = COLU) YELLOW YEL/STRAW UA APPEARANCE (test code = APPU) CLEAR CLEAR UA GLUCOSE DIPSTICK (test code = DGLUU) NEGATIVE NEGATIVE UA BILIRUBIN DIPSTICK (test code = BILU) NEGATIVE NEGATIVE UA KETONE DIPSTICK (test code = KETU) NEGATIVE NEGATIVE UA SPECIFIC GRAVITY (test code = SGU) 1.032 1.005-1.030 H UA BLOOD DIPSTICK (test code = LEON) NEGATIVE NEGATIVE UA PH DIPSTICK (test code = DMITRI) 6.0 5.0-7.0 N UA PROTEIN DIPSTICK (test code = PROU) NEGATIVE NEGATIVE UA UROBILINIOGEN DIPSTICK (test code = URO) 4.0 mg/dL 0.2-1.0 A UA NITRITE DIPSTICK (test code = ANIRUDH) NEGATIVE NEGATIVE UA LEUKOCYTE ESTERASE DIPSTICK (test code = LEUU) NEGATIVE NEGA TIVE UA WBC (test code = WBCU) 0-3 WBC/HPF 0-3 UA RBC (test code = RBCU) 4-10 RBC/HPF 0-3 UA WBC NO REFLEX (test code = WBCUCL) 0-3 WBC/HPF 0-3 UA BACTERIA (test code = BACU) TRACE /HPF NONE SEEN UA SQUAMOUS CELLS (test code = SQU) 0-5 /HPF NONE SEEN UA MUCUS (test code = MUCU) 4+ /LPF NONE SEEN A Indication for culture: Suprapubic PainSpecimen Description: CLEAN CATCHUR HCG [id number] 04:51:00* Test Item Value Reference Range Interpretation Comments UR HCG QUAL (test code = HCGQLU) NEGATIVE NEGATIVE BASIC METABOLIC [id number] 04:11:00* Test Item Value Reference Range Interpretation Comments SODIUM (test code = NA) 136 mEq/L 134-147 N POTASSIUM (test code = K) 3.0 mEq/L 3.4-5.0 L CHLORIDE (test code = CL) 102 mEq/L 100-108 N CARBON DIOXIDE (test code = CO2) 25 mEq/L 21-33 N ANION GAP (test code = GAP) 12 0-20 N GLUCOSE (test code = GLU) 96 mg/dL 70-110 N BLOOD UREA NITROGEN (test code = BUN) 5 mg/dL 7-18 L GLOMERULAR FILTRATION RATE (test code = GFR) 102.6 110-120 L Units of measure = ml/min/1.73 m2 CREATININE (test code = CREAT) 0.8 mg/dL 0.6-1.3 N CALCIUM (test code = CA) 8.7 mg/dL 8.0-10.5 N HEPATIC FUNCTION [id number] 04:11:00* Test Item Value Reference Range Interpretation Comments TOTAL PROTEIN (test code = PROT) 7.9 g/dL 6.4-8.2 N ALBUMIN (test code = ALB) 3.40 g/dL 3.4-5.0 N BILIRUBIN TOTAL (test code = BILT) 0.4 MG/DL <1.5 N BILIRUBIN DIRECT (test code = BILD) < 0.10 MG/DL 0.0-0.30 N BILIRUBIN INDIRECT (test code = BILIND) 0.30 MG/DL SGOT/AST (test code = AST) 36 IUnit/L 15-37 N SGPT/ALT (test code = ALT) 33 IUnit/L 15-65 N ALKALINE PHOSPHATASE TOTAL (test code = ALKP) 88 IUnit/L 20-125 N [id number] 04:11:00* Test Item Value Reference Range Interpretation Comments LIPASE (test code = LIP) 71 IUnit/L 73-393 L BASIC METABOLIC [id number] 04:08:00* Test Item Value Reference Range Interpretation Comments SODIUM (test code = NA) 136 mEq/L 134-147 N POTASSIUM (test code = K) 3.0 mEq/L 3.4-5.0 L CHLORIDE (test code = CL) 102 mEq/L 100-108 N CARBON DIOXIDE (test code = CO2) 25 mEq/L 21-33 N ANION GAP (test code = GAP) 12 0-20 N GLUCOSE (test code = GLU) 96 mg/dL 70-110 N BLOOD UREA NITROGEN (test code = BUN) 5 mg/dL 7-18 L GLOMERULAR FILTRATION RATE (test code = GFR) 110-120 CREATININE (test code = CREAT) mg/dL 0.6-1.3 CALCIUM (test code = CA) 8.7 mg/dL 8.0-10.5 N HEPATIC FUNCTION [id number] 04:08:00* Test Item Value Reference Range Interpretation Comments TOTAL PROTEIN (test code = PROT) g/dL 6.4-8.2 ALBUMIN (test code = ALB) g/dL 3.4-5.0 BILIRUBIN TOTAL (test code = BILT) MG/DL <1.5 BILIRUBIN DIRECT (test code = BILD) MG/DL 0.0-0.30 SGOT/AST (test code = AST) IUnit/L 15-37 SGPT/ALT (test code = ALT) IUnit/L 15-65 ALKALINE PHOSPHATASE TOTAL (test code = ALKP) IUnit/L 20-125 [id number] 04:08:00* Test Item Value Reference Range Interpretation Comments LIPASE (test code = LIP) 71 IUnit/L 73-393 L CBC W/AUTO [id number] 03:47:00* Test Item Value Reference Range Interpretation Comments WHITE BLOOD CELL (test code = WBC) 6.94 x10 3/uL 4.5-11.0 N RED BLOOD CELL (test code = RBC) 4.20 x10 6/uL 3.54-5.02 N HEMOGLOBIN (test code = HGB) 11.0 g/dL 11.0-15.0 N HEMATOCRIT (test code = HCT) 35.2 % 33.0-45.0 N MEAN CELL VOLUME (test code = MCV) 83.8 fL 81.0-99.0 N MEAN CELL HGB (test code = MCH) 26.2 pg 27.0-33.0 L MEAN CELL HGB CONCETRATION (test code = MCHC) 31.3 g/dL 33.0-37. 0 L RED CELL DISTRIBUTION WIDTH CV (test code = RDW) 15.8 % 11.5- 14.5 H RED CELL DISTRIBUTION WIDTH SD (test code = RDW-SD) 47.3 fL 37 .0-54.0 N PLATELET COUNT (test code = PLT) 411 x10 3/uL 150-400 H MEAN PLATELET VOLUME (test code = MPV) 9.8 fL 7.0-9.0 H NEUTROPHIL % (test code = NT%) 48.5 % 56.0-77.0 L IMMATURE GRANULOCYTE % (test code = IG%) 0.3 % 0.0-2.0 N LYMPHOCYTE % (test code = LY%) 43.1 % 14.0-32.0 H MONOCYTE % (test code = MO%) 5.2 % 4.8-9.0 N EOSINOPHIL % (test code = EO%) 1.9 % 0.3-3.7 N BASOPHIL % (test code = BA%) 1.0 % 0.0-2.0 N NUCLEATED RBC % (test code = NRBC%) 0.0 % 0-0 N NEUTROPHIL # (test code = NT#) 3.37 x10 3/uL 2.0-7.6 N IMMATURE GRANULOCYTE # (test code = IG#) 0.02 x10 3/uL 0.00-0.03 N LYMPHOCYTE # (test code = LY#) 2.99 x10 3/uL 1.0-3.8 N MONOCYTE # (test code = MO#) 0.36 x10 3/uL 0.1-0.8 N EOSINOPHIL # (test code = EO#) 0.13 x10 3/uL 0.0-0.2 N BASOPHIL # (test code = BA#) 0.07 x10 3/uL 0.0-0.2 N NUCLEATED RBC # (test code = NRBC#) 0.00 x10 3/uL 0.0-0.1 N MANUAL DIFF REQUIRED (test code = MDIFF) NO Blood parasite, thin [id number] 13:58:44* Test Item Value Reference Range Interpretation Comments Blood parasite, thin smear (test code = 981) No Plasmo dium or other blood parasite seen. Specimen Information Specimen Source: [facility], [facility] & [id number] 10:33:06* Test Item Value Reference Range Interpretation Comments Blood culture isolate (test code = 600-7) No growth after 5 days of incubation. Specimen InformationSpecimen Source: BloodSpecimen Site: Peripheral Hand Right [facility] [id number] 08:26:00* Test Item Value Reference Range Interpretation Comments Case number (test code = 2018552) [id number] Surgical pathology report (test code = 2255) See link below for PDF Lab Report Result status (test code = 2709015) This is Final Report for [id number] 9984-34 [facility] antigen with [id number] 12:01:08* Test Item Value Reference Range Interpretation Comments Plasmodium falciparum antigen (test code = 5969) Negat estela for Plasmodium falciparum antigen. Specimen Information Specimen Source: BloodSpecimen Site: Peripheral Plasmodium species antigen (test code = 18158-7) Negat estela for Plasmodium species antigen. Blood parasite, thick smear (test code = 980) No Plasm odium or other blood parasite seen. [facility] [id number] 09:52:33* Test Item Value Reference Range Interpretation Comments Potassium (test code = 2823-3) 3.7 3.5- 5.0 mEq/L [facility] [id number] 06:09:37* Test Item Value Reference Range Interpretation Comments POC glucose (test code = 22726-8) 178 mg/dL 65-100 H Manager Group Name: Marlene Berumen ID: [id number] Lab Interpretation (test code = 34234-6) Abnormal [facility] metabolic [id number] 05:42:41* Test Item Value Reference Range Interpretation Comments Sodium (test code = 2951-2) 132 135- 150 mEq/L L Potassium (test code = 2823-3) 5.3 3.5- 5.0 mEq/L H Chloride (test code = 2075-0) 99 98- 112 mEq/L CO2 (test code = 8-9) 24 mmol/L 24-31 Anion gap (test code = 94798-1) 9@ANIO 7- 15 mEq/L BUN (test code = 3094-0) 4 mg/dL 7-18 L Creatinine (test code = 2160-0) 0.60 mg/dL 0.5-0.9 Glucose (test code = 2345-7) 113 mg/dL 65-100 H Calcium (test code = 96795-3) 7.7 mg/dL 8.3-10.2 L Lab Interpretation (test code = 14844-6) Abnormal [facility] [id number] 12:03:48* Test Item Value Reference Range Interpretation Comments Cholesterol (test code = 2093-3) 224 mg/dL 0-199 H Triglycerides (test code = 2571-8) 116 mg/dL 0-149 HDL cholesterol (test code = 2085-9) 63 mg/dL 40-9999 LDL cholesterol (test code = 2089-1) 165 mg/dL 0-99 H Result obtained by direct LDL measurement Lipid panel interpretation (test code = 16425-2) See below Total Cholesterol (mg/dL) LDL Cholesterol (mg/dL) <200 Desirable <100 Optimal 200-239 Borderline-high 100-129 Near or above optimal >=240 High 130-159 Borderline- high 160-189 High >=190 Very highHDL Cholesterol (mg/dL) Triglycerides (mg/dL) <40 Low <150 Normal >=60 High 150-199 Borderline-high 200-499 High >=500 Very high Risk Catergories that modify LDL goals.Risk Catergories LDL goal (mg/dL)CHD and CHD risk equivalent <100 (10-year risk >20%)Multiple (2+) risk factors <130 (10-year risk =<20%)0-1 risk factors <160 (<10-year risk) Defining levels of lipids in metabolic syndromeTriglycerides >=150 mg/dLHDL Cholesterol Men <40 mg/dL Women <50 mg/dL Non-HDL cholesterol is a second target for therapy in personswith high triglycerides (>=200 mg/dL) Lab Interpretation (test code = 23262-4) Abnormal [facility] [id number] 18:12:04Gram stain resultNo WBC'sFew Gram positive rods Comment: Specimen InformationSpecimen Source: UrineSpecimen Site: Clean catch [facility]
== END 2019-12-06 05:08 | disposition home or self-care (01) ==
LOC: ER 02:25
DX: R10.2 Pelvic and perineal pain (principal); N39.0 Urinary tract infection, site not specified; R11.2 Nausea with vomiting, unspecified; Z76.5 Malingerer [conscious simulation]
CPT/HCPCS: 36415; 74176; 80053; 80307; 81001; 81025; 85025; 99284; J1885; J2270; J2405; J7030

== ENCOUNTER 2020-08-29 23:29 | Emergency (ER) | payer SELFPAY ==
[~2020-08-29] VITALS: Ht 162.6 cm; Wt 92.5 kg
[2020-08-30] MEDS ORDERED: AUGMENTIN 875-1 EACH PO (00:02)
[2020-08-30] MEDS ORDERED: PERIDEX473 M1 PO (00:02)
[2020-08-30] MEDS ORDERED: LIDOCAINE VISC 2% SOLN 15 ML UDC ONE (00:12)
[2020-08-30] MEDS ORDERED: ONDANSETRON HCL 4 MG ORAL DISINTEGRATING TAB ONE (00:12)
[2020-08-30] MEDS ORDERED: AMOXICILLIN/CLAVULANATE K 875 MG TAB ONE (00:13)
[2020-08-30] MEDS ORDERED: AMOXICILLIN/CLAVULANATE K 875 MG TAB PO STA (00:13)
[2020-08-30] MEDS ORDERED: LIDOCAINE VISC 2% SOLN 15 ML UDC PO ONE (00:15)
[2020-08-30] MEDS ORDERED: ONDANSETRON HCL 4 MG ORAL DISINTEGRATING TAB PO ONE (00:15)
== END 2020-08-30 00:12 | disposition home or self-care (01) ==
LOC: ER 23:57
DX: K08.89 Other specified disorders of teeth and supporting structures (principal); K21.9 Gastro-esophageal reflux disease without esophagitis; E28.2 Polycystic ovarian syndrome
CPT/HCPCS: 99283; Q0162